=== PATIENT | female | born 1950 | race Caucasian/White ===

== ENCOUNTER 2021-01-04 10:05 | Outpatient (CLI) | payer MEDICARE, MEDICAID, SELFPAY ==
--- NOTE | 2021-01-04 10:15 | ECG_ITS ---
Measurements Intervals [place] Rate: 59 P: 57 [place]: 171 QRS: 27 QRSD: 98 T: 42 QT: 413 QTc: 411 Interpretive Statements SINUS BRADYCARDIA EARLY PRECORDIAL R/S TRANSITION BORDERLINE ECG Electronically Signed On 01-04-2021 11:15:54 CDT by Fredrick Krishnan D.O.
[2021-01-04 11:12] LABS: Anion Gap 9 mmol/L (8-16); Blood Urea Nitrogen 17 mg/dL (7-17); Calcium 9.5 mg/dL (8.4-10.2); Carbon Dioxide 29 mmol/L (22-30); Chloride 101 mmol/L (98-107); Estimated Glomerular Filt Rate > 60; Glucose 105 mg/dL (65-110); Potassium 4.1 mmol/L (3.4-5.0); Sodium 139 mmol/L (137-145)
== END 2021-01-04 10:06 | disposition home or self-care (01) ==
LOC: ANHSURGERY 10:16
PROVIDERS: Anesthesiology; PCP Family Medicine; Visit Provider Orthopaedic Surgery
DX: E11.9 Type 2 diabetes mellitus without complications (principal); Z01.818 Encounter for other preprocedural examination
CPT/HCPCS: 36415; 80048; 93005

== ENCOUNTER 2021-01-10 02:55 | Day surgery (SDC) | payer MEDICARE, MEDICAID, SELFPAY ==
[2020-12-28 14:35] VITALS: BMI 41.0
--- NOTE | 2021-01-05 12:54 | PM.IMHP ---
H&P: HPI History of Present Illness Date/Time: 01/05/21 12:54 the patient is a 70-year-old female who presents with right knee pain. The patient has a chronic ongoing history of pain localized to right knee particularly medially. She reports locking catching pain with ambulation twisting or turning squatting kneeling going up and down stairs causes significant pain as well. The patient has tried cortisone therapy and anti-inflammatories without significant relief. An MRI scan was performed, this shows small knee joint effusion and small popliteal fossa cyst there is also patellofemoral joint space narrowing most significantly laterally. Medial joint space narrowing is also noted with mild chondral path and changes in the medial femoral condyle. Stabilizing ligaments of the knee are intact. The medial meniscus shows mucoid degeneration of the posterior horn of the medial meniscus a probable complex tear exiting posteriorly and inferiorly. The lateral meniscus shows a small tear the posterior horn lateral meniscus as well. At this point the patient has failed conservative measures she has where the above findings she knows she has pre-existing osteoarthritis and may not get full relief of her knee pain from knee arthroscopy after she would like to proceed. She has discussed the MRI and details of surgery in detail with Dr. García. Chief Complaint: Right knee pain due to medial and lateral meniscal tears Review of Systems Review of Systems: All systems reviewed & are unremarkable except as noted in HPI and below PMFSH Past Medical History Medical History COPD (chronic obstructive pulmonary disease) HTN (hypertension) Family History Family History Mother Hypertension Family history of diabetes mellitus in first degree relative Father Patient's father is Acute myocardial infarction Family history of heart disease in male family member before age 55 Social History Social History Smoking status: Former smoker Second hand tobacco smoke exposure: No Smoking end date: 03/24/05 Additional smoking assessment comments: STATES 2 2/1PK/DAY/AGE 15 QUIT 2005 Alcohol intake: never Substance use: never Substance use type: does not use Spiritual care concerns: No Meds Home Medications and Allergies Home Medications Medication Instructions Recorded Confirmed Type amlodipine 5 mg PO HS 01/30/19 12/28/20 History atorvastatin 80 mg PO HS 01/30/19 12/28/20 History buspirone 10 mg PO BID 01/30/19 12/28/20 History citalopram 40 mg PO QAM 01/30/19 12/28/20 History gabapentin 100 mg PO TID 01/30/19 12/28/20 History hydrochlorothiazide 25 mg PO QAM 01/30/19 12/28/20 History lisinopril 40 mg PO QAM 01/30/19 12/28/20 History metformin 1,000 mg PO BID 01/30/19 12/28/20 History pantoprazole 40 mg PO HS 01/30/19 12/28/20 History sitagliptin [Januvia] 100 mg PO HS 01/30/19 12/28/20 History albuterol sulfate 2 puff INHALATION QID PRN 12/28/20 12/28/20 History aspirin 325 mg PO DAILY 12/28/20 12/28/20 History diphenhydramine HCl [Sleep Aid 25 mg PO HS 12/28/20 12/28/20 History (diphenhydramine)] sertraline 100 mg QAM 12/28/20 12/28/20 History Allergies Allergy/AdvReac Type Severity Reaction Status Date / Time No Known Allergies Allergy Verified 12/28/20 14:28 Exam Narrative: On exam the patient is noted be a well-developed well-nourished female no acute distress she is alert oriented x3. Normal mood and affect. Hearing and vision intact. Respiratory is good no distress. Pulse regular rate rhythm. Abdomen benign. Extremities showed the patient's right knee to be painful with manipulation range of motion. She has tenderness on the medial and somewhat lateral joint line with a positive Anita exam negative Cornelius knee joint is otherwise stable stre
--- NOTE | 2021-01-09 13:01 | WPDANESEPPF ---
Anes - Initial Pre Proc Eval Procedure: Operation Date: 01/10/21 07:30 Proposed Procedures p Right Knee Arthroscopy, Partial Medial and Lateral Meniscectomy, Proceed As Indicated - Cain García MD Date/Time: 01/09/21 13:01 Surgeon: Cain García MD Pre Op Diagnosis: medial meniscus tear right knee Patient Data Age: 70 Gender: F Height: 1.65 m Weight: 111.81 kg Allergies Allergy/AdvReac Type Severity Reaction Status Date / Time No Known Allergies Allergy Verified 01/10/21 06:21 Home Medications Medication Instructions Recorded Confirmed Type amlodipine 5 mg PO HS 01/30/19 01/10/21 History atorvastatin 80 mg PO HS 01/30/19 01/10/21 History buspirone 10 mg PO BID 01/30/19 01/10/21 History citalopram 40 mg PO QAM 01/30/19 01/10/21 History gabapentin 100 mg PO TID 01/30/19 01/10/21 History hydrochlorothiazide 25 mg PO QAM 01/30/19 01/10/21 History lisinopril 40 mg PO QAM 01/30/19 01/10/21 History metformin 1,000 mg PO BID 01/30/19 01/10/21 History pantoprazole 40 mg PO HS 01/30/19 01/10/21 History sitagliptin [Januvia] 100 mg PO HS 01/30/19 01/10/21 History albuterol sulfate 2 puff INHALATION QID PRN 12/28/20 01/10/21 History aspirin 325 mg PO DAILY 12/28/20 01/10/21 History diphenhydramine HCl [Sleep Aid 25 mg PO HS 12/28/20 01/10/21 History (diphenhydramine)] sertraline 100 mg QAM 12/28/20 01/10/21 History Patient hx anesthesia problems: none Family hx anesthesia problems: none Results Review: All pre-operative results and documents have been reviewed as part of the pre-operative evaluation. [facility] Past Medical History Medical History (Updated 01/09/21 @ 12:56 by Zach Randhawa MD) COPD (chronic obstructive pulmonary disease) Diabetes GERD (gastroesophageal reflux disease) HTN (hypertension) Hyperlipidemia LUX (obstructive sleep apnea) Family History Family History Mother Hypertension Family history of diabetes mellitus in first degree relative Father Patient's father is Acute myocardial infarction Family history of heart disease in male family member before age 55 Social History Social History Smoking status: Former smoker Second hand tobacco smoke exposure: No Smoking end date: 03/24/05 Additional smoking assessment comments: STATES 2 2/1PK/DAY/AGE 15 QUIT 2005 Alcohol intake: never Substance use: never Substance use type: does not use Living arrangements: with family Spiritual care concerns: No Anes - Eval Final PreProcedure Day of Procedure 01/09/21 13:01 Patient weight: morbidly obese Heart: regular rate and rhythm Lungs: clear to auscultation Airway: Mallampati scale class III Neurological: alert and oriented Last oral intake: >/= 8 hours ASA classification: III Emergent: no Anesthetic plan: proceed Anesthesia type and monitoring: general LMA and standard monitoring Results Review: All pre-operative results and documents have been reviewed as part of the pre-operative evaluation. Informed Consent: The patient's anesthetic plan and its attendant risks and benefits were discussed with the patient/family/POA. Questions were solicited and answers provided to the satisfaction of the patient/family/POA.
[2021-01-10] VITALS (9 sets, daily range): BP systolic 105–153; BP diastolic 48–68; PULSE 56–67; RESP 12–20; TEMP 36–36.2; O2SAT 90–99; BMI 42.3
[2021-01-10] MEDS: LACTATED RINGERS 1,000 ML 30 ML IV CONT ×2 (06:32→09:11)
[2021-01-10] MEDS: ACETAMINOPHEN 500 MG TABLET 1000 MG PO (06:33)
[2021-01-10] MEDS: KETOROLAC 15 MG/ML VIAL (*BKC) IV PUSH (06:33)
[2021-01-10 06:37] LABS: Glucose Point of Care 88 mg/dl (65-105)
--- NOTE | 2021-01-10 07:19 | WPDHPUPDATE1 ---
History and Physical Update Update Date/Time: 01/10/21 07:19 History and Physical has been reviewed, including an updated exam of the patient. There are NO changes in the patient's condition. Risks, benefits, and alternatives have been discussed and questions answered. Patient agrees to proceed with procedure.
[2021-01-10] MEDS: ceFAZolin 2 GM/D5W 50 ML 2 GM/50 ML BAG IVPB (07:24)
--- NOTE | 2021-01-10 07:28 | SUR.PREOP ---
0700; NOTIFIED DR DELVALLE, PT TOOK HER METFORMIN TODAY
[2021-01-10] MEDS: LIDO 1%/EPINEPHRINE 1:100,000 50 ML VIAL INFILTRATE (07:54)
--- NOTE | 2021-01-10 08:16 | W.PM.PROC2 ---
Procedure Note - Detailed Date of Procedure 01/10/21 Pre-op Diagnosis medial meniscus tear right knee Post-op Diagnosis same Procedure Performed [right] knee arthroscopy with partial meniscetomy Surgeon Cain García MD Anesthesia general Description of Procedure Patient brought to the operating room and anesthetic was administered. The knee was steriley prepped and drapped in the usual manner. Standard portals were used. Superior medial portal was used for the outflow cannula, inferior lateral portal was used for the scope, inferior medial portal was used for the instruments. Arthroscopy was performed, the patellar femoral joint degenerative changes. The medial compartment showed a complex tear. The lateral compartment showed fraying. The ACL was intact. Using baskets and rylee the meniscal tear was trimmed back to a stable base so the nothing further could be pulled into the joint. Any loose or delaminated fragments were gently trimmed to a stable base. At this point the instruments were withdrawn, sutures placed and patient left the operating room in satisfactory condition. Large plica debrided Estimated Blood Loss 20 Drains No Packing No Pathology none sent Complications No immediate complications Condition stable Disposition PACU
[2021-01-10 08:40] LABS: Glucose Point of Care 104 mg/dl (65-105)
[2021-01-10] MEDS: fentaNYL CITRATE INJ (*CRX) 100 MCG/2 ML VIAL 25 MCG IV PUSH ×4 (09:05→09:31)
[2021-01-10] MEDS: oxyCODONE HCL (*CRX) 5 MG TAB IR PO (10:12)
--- NOTE | 2021-01-10 11:23 | SUR.PHASEII ---
1050 ASSISTED PATIENT WITH DRESSING. AWAITING RIDE.
== END 2021-01-10 11:44 | disposition home or self-care (01) ==
PROVIDERS: PCP Family Medicine; Visit Provider Orthopaedic Surgery
PROC: (CPT 29870; principal; 2021-01-10 07:30)
DX: M23.331 Other meniscus derangements, other medial meniscus, right knee (principal); E11.9 Type 2 diabetes mellitus without complications; J44.9 Chronic obstructive pulmonary disease, unspecified; I10 Essential (primary) hypertension; E78.5 Hyperlipidemia, unspecified; G47.33 Obstructive sleep apnea (adult) (pediatric); K21.9 Gastro-esophageal reflux disease without esophagitis; Z87.891 Personal history of nicotine dependence; E66.01 Morbid (severe) obesity due to excess calories; Z68.41 Body mass index [BMI] 40.0-44.9, adult; Z79.84 Long term (current) use of oral hypoglycemic drugs; Z79.82 Long term (current) use of aspirin
CPT/HCPCS: 29881; 36415; 80048; 82948; 93005; A9270; J0690; J1100; J1885; J2250; J2405; J2704; J3010; J7120

== ENCOUNTER 2024-01-06 09:38 | Emergency (ER) | payer MEDICARE, MEDICAID, SELFPAY ==
[2024-01-06 09:42] VITALS: BP 145/53; PULSE 68; RESP 20; TEMP 36.7; O2SAT 98
[2024-01-06 10:11] VITALS: BP 145/53; PULSE 68; RESP 20; TEMP 36.7; O2SAT 98
--- NOTE | 2024-01-06 10:31 | ED.EAR ---
HPI - Ear Problem General Chief complaint: Ear Stated complaint: bug in left ear Time Seen by Provider: 01/06/24 10:31 Source: patient Mode of arrival: ambulatory Limitations: no limitations History of Present Illness HPI Narrative: 73 y/o female presented for c/o 'bug in the left ear.' Says a canela crawled into the ear at 0230. She rinsed the ear with hydrogen peroxide at that time. Since then she continues to feel it crawling and reports pain and bleeding. Pain is mild, worse when it moves. MD Complaint: ear pain Related Data Home Medications Medication Instructions Recorded Confirmed amlodipine 5 mg tablet 5 mg PO HS 01/30/19 01/06/24 atorvastatin 80 mg tablet 80 mg PO HS 01/30/19 01/06/24 buspirone 10 mg tablet 10 mg PO BID 01/30/19 01/06/24 hydrochlorothiazide 25 mg tablet 25 mg PO QAM 01/30/19 01/06/24 lisinopril 40 mg tablet 40 mg PO QAM 01/30/19 01/06/24 metformin 500 mg tablet 500 mg PO BID 01/30/19 01/06/24 pantoprazole 40 mg tablet,delayed 40 mg PO HS 01/30/19 01/06/24 release sitagliptin phosphate 100 mg 100 mg PO HS 01/30/19 01/06/24 tablet (Januvia) albuterol sulfate 90 mcg/actuation 2 puff inhalation QID PRN Wheezing 12/28/20 01/06/24 aerosol inhaler aspirin 325 mg tablet 325 mg PO DAILY 12/28/20 01/06/24 sertraline 100 mg tablet 100 mg QAM 12/28/20 01/06/24 losartan 100 mg tablet 100 mg PO DAILY 01/06/24 01/06/24 tramadol 50 mg tablet 50 mg PO Q6H PRN Pain 01/06/24 01/06/24 Allergies Allergy/AdvReac Type Severity Reaction Status Date / Time No Known Allergies Allergy Verified 01/06/24 09:58 Review of Systems Review of Systems: CONSTITUTIONAL: Denies malaise, chills, or fever. EYES: Denies visual changes, redness, or discharge. ENT: Denies rhinorrhea, congestion, sinus pain, and sore throat. Reports ear pain and FB. CARDIOVASCULAR: Denies chest pain, palpitations, or edema. RESPIRATORY: Denies cough or dyspnea. SKIN: Denies rash or itching. NEUROLOGIC: Denies headache. All systems reviewed & are unremarkable except as noted in HPI and below PMFSH Past Medical History Medical History COPD (chronic obstructive pulmonary disease) Diabetes GERD (gastroesophageal reflux disease) HTN (hypertension) Hyperlipidemia LUX (obstructive sleep apnea) Family History Family History Mother Hypertension Family history of diabetes mellitus in first degree relative Father Patient's father is Acute myocardial infarction Family history of heart disease in male family member before age 55 Social History Social History Smoking status: Former smoker Second hand tobacco smoke exposure: No Smoking end date: 03/24/05 Additional smoking assessment comments: STATES 2 2/1PK/DAY/AGE 15 QUIT 2005 Alcohol intake: never Substance use: never Substance use type: does not use Living arrangements: with family Spiritual care concerns: No Comments At time of signature, agree with nursing past medical, surgical, social and family history. There is no relevant family history pertinent to the presenting complaint Exam Narrative: GENERAL: Well-appearing EYES: conjunctivae clear ENT: Nares clear. Mucous membranes moist. Left TM unable to visualize, red blood noted to external canal with visible FB/insect in canal; no tragal tenderness. NECK: Supple. No lymphadenopathy CHEST: Clear to auscultation, breath sounds equal. HEART: Regular rate and rhythm. No murmur heard. SKIN: Warm, dry NEURO: Alert and oriented x3. Course Course Emergency Course: Patient is aware of diagnosis, understands and agrees to treatment plan. Anticipatory guidance given. Patient agrees to follow-up as directed and is aware of reasons to seek care at the emergency department. Portions of this record may have been created with voice rec
[2024-01-06] MEDS: LIDOCAINE HCL 1% LOCAL INJ 2 ML AMPUL INFILTRATE (10:43)
== END 2024-01-06 11:45 | disposition home or self-care (01) ==
PROVIDERS: Emergency Provider Nurse Practitioner Family; PCP Physician Assistant
DX: T16.2XXA Foreign body in left ear, initial encounter (principal); W44.F4XA Insect entering into or through a natural orifice, initial encounter; Z87.891 Personal history of nicotine dependence; J44.9 Chronic obstructive pulmonary disease, unspecified; E11.9 Type 2 diabetes mellitus without complications; I10 Essential (primary) hypertension; K21.9 Gastro-esophageal reflux disease without esophagitis; E78.5 Hyperlipidemia, unspecified
CPT/HCPCS: 69200; 99213; G0463; J2003

== ENCOUNTER 2024-06-11 14:45 | Emergency (ER) | payer MEDICARE, MEDICAID, SELFPAY ==
[2024-06-11 14:56] VITALS: BP 134/99; PULSE 91; RESP 18; TEMP 36.6; O2SAT 97
--- OUTSIDE RECORDS SUMMARY | 2024-06-11 14:58 | XMS_ITS | Clinical Summary ---
Author Organization [facility] Address [address] [place] [address] Phone Care Team Providers Care Health Actuary Name Role Phone Perry García Primary Care Provider [phone] Allergies No known active allergies Medications amLODIPine (NORVASC) 5 MG Tablet Take 5 mg by mouth daily. Active aspirin 325 MG Tablet Take 325 mg by mouth daily. Active atorvastatin (LIPITOR) 80 MG Tablet Take 80 mg by mouth daily. Active busPIRone (BUSPAR) 10 MG Tablet Take 10 mg by mouth every 8 hours as needed. Active citalopram (CELEXA) 40 MG Tablet Take 40 mg by mouth daily. Active gabapentin (NEURONTIN) 100 MG Capsule Take 100 mg by mouth 3 times daily. Active hydroCHLOROthia zide 25 MG Tablet Take 25 mg by mouth daily. Active ibuprofen (MOTRIN) 200 MG Tablet Take 400 mg by mouth every 6 hours as needed. Active SITagliptin (JANUVIA) 100 MG Tablet Take 100 mg by mouth daily. Active lisinopril (PRINIVIL, ZESTRIL) 40 MG Tablet Take 40 mg by mouth daily. Active metFORMIN (GLUCOPHAGE) 500 MG Tablet Take 1,000 mg by mouth 2 times daily (with meals). Active albuterol (PROAIR HFA) 108 (90 Base) MCG/ACT Aerosol Solution take 2 Puffs by inhalation every 4 hours as needed. Active HYDROcodone-hugh taminophen (NORCO) 5-325 MG TabletIndicatio ns:Contusion of right upper extremity, initial encounter Take 1-2 Tablets by mouth every 4 hours as needed for Moderate or more severe pain. 20 Tablet 06/10/202 4 Active Active Problems Problem Noted Date Diagnosed Date COPD (chronic obstructive pulmonary disease) Social History Tobacco Use Types Packs/Day Years Used Date Smoking Tobacco: Former Cigarettes Q uit: 2009 Smokeless Tobacco: Never Alcohol Use Standard Drinks/Week Comments Never 0 (1 standard drink = 0.6 oz pur e alcohol) AUDIT-C Answer Date Recorded Frequency of Alcohol Consumption Never 03/20/2019 Average Number of Drinks Not on file 019 Frequency of Binge Drinking Not on file 02/22 Comments No Sex and Gender Information Value Date Recorded Sex Assigned at Not on file Legal Sex Female 12:00 AM CDT Gender Identity Not on file Sexual Orientation Not on file Last Filed Vital Signs Vital Sign Reading Time Taken Comments Blood Pressure 161/62 09/01/2023 12:04 AM CDT Pulse 74 09/01/2023 12:04 AM CDT Temperature 36.6 C (97.9 F) 09/01/2023 12:04 AM CDT Respiratory Rate 18 09/01/2023 12:04 AM CDT Oxygen Saturation 98% 09/01/2023 12:04 AM CDT Inhaled Oxygen Concentration - - Weight 104.3 kg (230 lb) 09/01/2023 12:04 AM CDT Height 165.1 cm (5' 5 ) 09/01/2023 12:04 AM CDT Body Mass Index 38.27 09/01/2023 12:04 AM CDT Plan of Treatment Health Maintenance Due Date Last Done Comments DEXA Bone Density 1950 Hepatitis C Virus (HCV) Screening 1950 Mammogram 1950 Colonoscopy 10/27/1995 Colorectal Cancer Screening 10/27/1995 Cologuard 2000 Immunochemical Fecal Occult Blood 2000 Respiratory Syncytial Virus (RSV) Immunization (Adult) (1 - Risk 60-74 years 1-dose series) 2010 Zoster Immunization (2 of 2) 03/26/2019 01/29/2019 Influenza Immunization (#1) 2023 11/0 11/2022, 02/21/2022, 12/17/2018, Additional history exists SARS-COV-2 Immunization ( - season) 2023 12/15/2020, 11/24/2020 DTaP/Tdap/Td Immunization Discontinued 08/11/2015 TdaP Immunization Completed 08/11/2015 Pneumococcal Immunization (50+ years) Completed 01/29/2019, 01/26/2018, 01/24/2018 Pneumococcal Immunization Combined Discontinued 01/29/2019, 01/26/2018, 01/24/2018 Hepatitis B Immunization Aged Out No longer eligible based on patient's age to complete this topic Meningococcal Immunization (ACWY) Aged Out No longer eligible based on patient's age to complete this topic Rotavirus Immunization Aged Out No lo nger eligible based on patient's age to complete this topic Insurance MEDICAID [place] MEDICARE C [employer] Care Teams Health Actuary Relationship Specialty Start Date End Date Perry García PA [address] [place] [id number] PCP - General Physician Electric Detector Operator 09/01/23
--- OUTSIDE RECORDS SUMMARY | 2024-06-11 14:58 | XMS_ITS | CONTINUITY OF CARE DOCUMENT ---
Author Name tashi akins Address Unknown Organization [facility] Address [address] [employer] [address] [employer] [facility] [address] [place] [address] Phone [phone] Care Team Providers Care Senior Property Manager Name Role Phone Pablo ROLDAN, Gregorio Unavailable [phone] GAY RODRIGUEZ MD Unavailable GAY RODRIGUEZ MD Unavailable PROBLEMS Condition Status Date Provider Notes HTN essential active Gregorio Shah MD HYPERLIPIDEMIA active Ange Luke Orthostatic hypotension active Gregorio Shah MD ARTHRITIS active Gregorio Shah MD DM - type 2 active 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 CHEST PAIN-12/29 CATH LAD mu scle bridge ,echo /stress 10/04 no ischemia active Gregorio Shah MD SLEEP APNEA ON CPAP active Gregorio Shah MD C O P D ON PRN active Gregorio Shah MD CHEST PAIN-12/30 NUC NEG 6/0 6 NUC EF 47 6/4 NUC NEG completed - Gregorio Shah MD ENCOUNTERS Date Type Provider Location Encounter Diag nosis - In-person encounter Office Visit Gregorio Shah MD [facility] Orthostatic hypotension - In-person encounter Office Visit Gregorio Shah MD [facility] - In-person encounter Office Visit Gregorio Shah MD [facility] ARTHRITIS - In-person encounter Office Visit Gregorio Shah MD [facility] - In-person encounter Office Visit Gregorio Shah MD [facility] DM - type 2 - In-person encounter Office Visit Gregorio Shah MD [facility] - In-person encounter Office Visit Gregorio Shah MD [facility] CHEST PAIN-12/29 CATH LAD muscle bridge ,echo /stress 10/04 no ischemia - In-person encounter Office Visit Gregorio Shah MD [facility] CHEST PAIN-12/29 CATH LAD muscle bridge ,echo /stress 10/04 no ischemia - In-person encounter Office Visit Gregorio Shah MD [facility] - In-person encounter Office Visit Gregorio Shah MD [facility] - In-person encounter Office Visit Gregorio Shah MD [facility] - In-person encounter Office Visit Gregorio Shah MD [facility] - In-person encounter Office Visit Gregorio Shah MD [facility] - In-person encounter Office Visit Gregorio Shah MD [facility] - In-person encounter Office Visit Gregorio Shah MD [facility] CHEST PAIN-12/30 NUC NEG 08/27 NUC EF 47 6/4 NUC NEGC O P D ON PRNSLEEP APNEA ON CPAP - In-person encounter Office Visit Gregorio Shah MD [facility] - In-person encounter Office Visit Gregorio Shah MD [facility] VITAL SIGNS Date Observation Value Provider Body Mass Index (Ratio) 41.18 kg/m2 Jame Shah MD blood pressure, diastolic 70 mm[Hg] Da ankit Tyler blood pressure, systolic 138 mm[Hg] Dac ia Tyler oxygen saturation, oximetry 97 % Daja Tyler respiratory rate E&M 16 /min Daja V oss pulse rate 67 /min Daja Tyler weight E&M 249 [lb_av] Daja Tyler height E&M 65.2 [in_i] Daja Tyler Body Mass Index (Ratio) 40.68 kg/m2 Jame Shah MD blood pressure, cuff size regular Ke rri Federico blood pressure, diastolic 72 mm[Hg] Ke rri Federico blood pressure, systolic 158 mm[Hg] Primo Caballero oxygen saturation, oximetry 97 % Nevin Caballero respiratory rate E&M 18 /min Nevin yu pulse rate 73 /min Nevin Botello er weight E&M 246 [lb_av] Nevin Botello er height E&M 65.2 [in_i] Nevin Botello er Body Mass Index (Ratio) 41.77 kg/m2 Jame Shah MD blood pressure, diastolic 68 mm[Hg] Lukasz Fuentes blood pressure, systolic 126 mm[Hg] Mary Fuentes oxygen saturation, oximetry 98 % Jeimy Fuentes respiratory rate E&M 20 /min Arely Fuentes pulse rate 72 /min Jeimy lovett weight E&M 252.6 [lb_av] Jeimy cardona height E&M 65.2 [in_i] Jeimy lovett blood pressure, diastolic 69 mm[Hg] Me buckley Rosa Elena blood pressure, systolic 126 mm[Hg] Tatyana jordan Rosa Elena pulse rate 78 /min Loly Rosa Elena oxygen saturation, oximetry 97 % Loly Cuba respiratory rate E&M 15 /min Loly Cuba Body Mass Index (Ratio) 42.67 kg/m2 Chyna kenzie [place] weight E&M 258 [lb_av] Loly [place] blood pressure, diastolic 67 mm[Hg] Lukasz Fuentes blood pressure, systolic 126 mm[Hg] Mary Fuentes pulse rate 85 /min Jeimy Macdonald sangeethaon oxygen saturation, oximetry 97 % Jeimy Fuentes respiratory rate E&M 18 /min Arely Fuentes Body Mass Index (Ratio) 43.06 kg/m2 Annette Fuentes weight E&M 260.4 [lb_av] Jeimy cardona Body Mass Index (Ratio) 42.67 kg/m2 Anea timo Trevon blood pressure, diastolic 81 mm[Hg] An eatris Trevon blood pressure, systolic 141 mm[Hg] Ane atris Brown pulse rate 76 /min Aneatris Brown oxygen saturation, oximetry 97 % Aneatris Brown respiratory rate E&M 17 /min Aneatri s Trevon weight E&M 258 [lb_av] Aneatris Brown Body Mass Index (Ratio) 42.50 kg/m2 Ruvalcaba i Federico blood pressure, diastolic 68 mm[Hg] Ke rri Federico blood pressure, systolic 124 mm[Hg] Ker ri Federico pulse rate 83 /min Nevin Ayan gonzaleser oxygen saturation, oximetry 97 % Nevin Federico respiratory rate E&M 16 /min Nevin Aden yu weight E&M 257 [lb_av] Nevin Justynanehenoke lder Body Mass Index (Ratio) 42.17 kg/m2 [facility], diastolic 89 mm[Hg] Me ina [place] blood pressure, systolic 140 mm[Hg] Tatyana [place] pulse rate 72 /min Loly Cuba oxygen saturation, oximetry 98 % Loly [place] respiratory rate E&M 16 /min Loly [place] weight E&M 255 [lb_av] Loly [place] Body Mass Index (Ratio) 42.16 kg/m2 Ruvalcaba i Federico blood pressure, diastolic 80 mm[Hg] Kendall rri Federico blood pressure, systolic 158 mm[Hg] Primo Caballero pulse rate 87 /min Nevin booth oxygen saturation, oximetry 98 % Nevin Caballero respiratory rate E&M 18 /min Nevin yu weight E&M 254 [lb_av] Nevin Botello lder blood pressure, diastolic 90 mm[Hg] Fabrice Miller RN blood pressure, systolic 156 mm[Hg] Adonay Miller RN pulse rate 82 /min Adonay Miller RN oxygen saturation, oximetry 95 % Adonay Miller RN respiratory rate E&M 18 /min Adonay david RN Body Mass Index (Ratio) 42.16 kg/m2 Adonay Miller RN weight E&M 254 [lb_av] Adonay Miller RN height E&M 65.2 [in_i] Adonay Miller RN blood pressure, diastolic 76 mm[Hg] Garima horowitz [place] blood pressure, systolic 158 mm[Hg] Ruben mcneal [place] pulse rate 84 /min Diego [place] oxygen saturation, oximetry 99 % Diego [place] respiratory rate E&M 16 /min Diego [place] weight E&M 253 [lb_av] Diego [place] blood pressure, diastolic 78 mm[Hg] Garima seph [place] blood pressure, systolic 166 mm[Hg] Ruben eph [place] pulse rate 74 /min Diego [place] oxygen saturation, oximetry 98 % Diego [place] respiratory rate E&M 16 /min Diego [place] weight E&M 248 [lb_av] Diego [place] blood pressure, diastolic 72 mm[Hg] Latham Jose blood pressure, systolic 104 mm[Hg] Radu jacobo Jose pulse rate 101 /min Denyean Jose oxygen saturation, oximetry 96 % Denyean Jose respiratory rate E&M 16 /min Denyean Jose blood pressure, diastolic 76 mm[Hg] He ather Blunt blood pressure, systolic 131 mm[Hg] Hea ther Blunt pulse rate 75 /min Emily Blunt oxygen saturation, oximetry 96 % Emily Blunt respiratory rate E&M 20 /min Emily Blunt weight E&M 248 [lb_av] Emily Blunt blood pressure, diastolic, left arm 100 m m[Hg] [facility], [facility], left arm 160 mm [Hg] [facility], diastolic, right arm 94 m m[Hg] [facility] blood [facility], systolic, right arm 148 m m[Hg] [facility], diastolic 94 mm[Hg] Garima seph [place] blood pressure, systolic 148 mm[Hg] Ruben eph [place] pulse rate 88 /min [facility] oxygen [facility], oximetry 97 % [facility] respiratory rate E&M 16 /min [facility] weight E&M 227 [lb_av] [facility], diastolic 87 mm[Hg] Danie Neff blood pressure, systolic 111 mm[Hg] Jenkins pulse rate 62 /min Siobhan Neff oxygen saturation, oximetry 95 % Siobhan Neff respiratory rate E&M 16 /min Siobhan Parson hussein weight E&M 236 [lb_av] Siobhan Neff ALLERGIES No Known Drug Allergies RESULTS Date Observation Value Provider Reference Range Interpretation Location 2 platelet count 263 10*3/mm3 [facility] 2 hematocrit, blood 39.6 % [facility] 2 international normalized ratio (INR) 0.9 [facility] 2 blood glucose, random 162 mg/dL [facility] 2 creatinine, serum 0.70 mg/dL [facility] 2 urea nitrogen, blood 17 mg/dL [facility] 2 potassium, serum 4.4 mmol/L [facility] 2 sodium, serum 139 mmol/L [facility] HISTORY OF MEDICATION USE Medication Status Instructions Dates Provider Indications Com ments NITROSTAT 0.4 MG SUBLINGUAL TABLET SUBLINGUAL active apply one tab under tongue every 5 minutes for 3 total doses as needed for chest pain. If no relief after 3rd dose, go to ER 08/19 Gregorio Shah MD AMLODIPINE BESYLATE 5 MG ORAL TABLET active ONE TAB at night 03/29 Gregorio Shah MD MULTIVITAMINS ORAL CAPSULE active ONE TAB. DAILY 03/29 Nevin Caballero GABAPENTIN 100 MG ORAL CAPSULE active 3 times daily Jeimy Fuentes JANUVIA 100 MG ORAL TABLET active once daily 11/05 Loly Cuba PANTOPRAZOLE SODIUM TABLET DELAYED RELEASE completed take one pill a day 10/19 - 11/05 Loly [place] METFORMIN HCL 1000 MG ORAL TABLET active twice daily 04/06 Jeimy Fuentes CELEXA 20 MG ORAL TABLET completed take one pill a day 04/06 - 11/05 Loly [place] HYDROCHLOROTHIAZIDE 25 MG ORAL TABLET active ONE TAB PO DAILY 05/05 Gregorio Shah MD DULERA 200-5 MCG/ACT INHALATION AEROSOL active 2 puffs once daily Adonay Miller RN HYDROCODONE-ACETAMINO PHEN 10-325 MG ORAL TABLET completed one tab daily as needed - 12/06 Nevin Caballero LISINOPRIL 40 MG ORAL TABLET active ONE TAB. DAILY Adonay Miller RN LIPITOR 40 MG ORAL TABLET active ONE TAB. DAILY 06/02 Gregorio Shah MD FISH OIL CAPS 2000MG active daily 06/02 Garima Macdonald LISINOPRIL-HYDROCHLOR OTHIAZIDE 20-12.5 MG ORAL TABLET completed one tab twice daily - 05/05 Adonay Miller RN DICLOFENAC SODIUM 75 MG ORAL TABLET DELAYED RELEASE completed 1 tablet by mouth twice daily - 11/05 Loly Rosa Elena LORTAB 10-500 MG ORAL TABLET completed 1 tablet by mouth daily as needed - 12/06 Nevin Caballero OMEPRAZOLE 40 MG ORAL CAPSULE DELAYED RELEASE completed 1 capsule by mouth daily - 12/06 Nevin Caballero SIMPLY SLEEP TABLET active 2 tablets by mouth at bedtime Diego Prado CYMBALTA 30 MG ORAL CAPSULE DELAYED RELEASE PARTICLES completed 1 capsule by mouth with 60mg = 90mg daily - 05/05 Adonay Miller RN HYDROCHLOROTHIAZIDE 12.5 MG ORAL CAPSULE completed ONE TAB. DAILY 04/29 - 04/30 Gregorio Shah MD LASIX 20 MG ORAL TABLET completed one tab daily for 1 week - 12/06 Diego Prado PROVENTIL HFA AEROSOL SOLUTION completed 2 puffs by mouth daily - 05/05 Adonay Miller RN ADVAIR DISKUS 250-50 MCG/DOSE INHALATION AEROSOL POWDER BREATH ACTIVATED completed ONE PUFF TWICE DAILY 04/07 - 05/05 Adonay Miller RN VYTORIN 10-10 MG ORAL TABLET completed 1 tablet by mouth daily - 05/05 Adonay Miller RN PHENTERMINE HCL 30 MG ORAL CAPSULE completed ONE CAP DAILY 04/07 - 12/06 Tasha Jose PRILOSEC OTC TABLET DELAYED RELEASE completed ONE TAB DAILY 04/07 - 12/06 Tasha Jose HEALTHY COLON CAPS completed ONE CAP DAILY 04/07 - 12/06 Nevin Caballero MELOXICAM 15 MG ORAL TABLET completed 1 tablet by mouth daily - 05/05 Adonay Miller RN PROZAC 40 MG ORAL CAPSULE completed as directed - 04/07 Adonay Miller RN MIRAPEX 0.5 MG ORAL TABLET completed once daily - 12/06 Diego Quintanaacoedgardo AVALIDE 300-25 MG TABS completed ONE TAB DAILY 04/07 - 08/28 Gregorio Shah MD XANAX 0.25 MG ORAL TABLET completed ONE TAB. THREE TIMES DAILY PRN - 12/06 Diego Prado MEDROL TABLET THERAPY PACK completed - 12/06 Diego Prado HYDROCHLOROTHIAZIDE 25 MG ORAL TABLET completed 1 tablet by mouth daily - 04/07 Adonay Miller RN XOPENEX HFA 45 MCG/ACT INHALATION AEROSOL completed QD - 04/07 Adonay Miller RN ASPIRIN 325 MG ORAL TABLET active Take Once Daily Ange Ti PREVACID CPDR completed 1 tablet by mouth daily - 04/07 Adonay Miller RN CRESTOR 10 MG ORAL TABLET completed Take Once Daily - 04/07 Adonay Miller RN EXFORGE 10-320 MG ORAL TABLET completed QD - 12/06 Diego Quintanaacoedgardo ADVAIR DISKUS 250-50 MCG/DOSE INHALATION AEROSOL POWDER BREATH ACTIVATED completed QD - 12/06 Diego Quintanaacop SPIRIVA HANDIHALER CAPSULE completed 8mcg QD - 12/06 Diego Prado MICARDIS HCT 80-25 MG ORAL TABLET completed QD - 12/06 Siobhan Neff SINGULAIR 10 MG ORAL TABLET completed 1 tablet by mouth daily as needed - 12/06 Diego Quintanaacoedgardo CYMBALTA 60 MG ORAL CAPSULE DELAYED RELEASE PARTICLES completed 1 capsule by mouth - 12/06 Nevin Caballero SOCIAL HISTORY Date Observation Value Provider social history reviewed E&M revi ewed - no changes required Esteban Hall seatbelt usage 100 % Symone harris exercise type walking Symone Li er physical exercise, f requency, days per week 2 /wk Symone Alberts alcohol use, average drinks per day none Symone Alberts alcohol use no Symone Hahn r caffeine use, averag e drinks per day no Symone Alberts drug use none Symone Hahn r passive cigarette sm lio exposure no Symone Alberts smoking, year quit 2004 Symone Pollack exander number of years as a smoker 10 years or m ore Symone Alberts smoking history, tot al pack/year 40 Symone Alberts smoking history, tot al pack/day 2.5 Symone Alberts smoking status Former smoker Symone melo cigarette use yes Symone [facility] seatbelt usage 100 % [facility] exercise type walking [facility] physical exercise, f requency, days per week 2 /wk Symone Alberts alcohol use, average drinks per day none Symone Alberts alcohol use no Symone wharton caffeine use, averag e drinks per day no Symone Alberts drug use none Symone Hahn r passive cigarette sm lio exposure no Symone Alberts smoking, year quit 2004 Symone Pollack mayra number of years as a smoker 10 years or m ore Symone Alberts smoking history, tot al pack/year 40 Symone Alberts smoking history, tot al pack/day 2.5 Symone Alberts smoking status Former smoker Symone melo cigarette use yes [facility] seatbelt usage 100 % [facility] steven exercise type walking [facility] physical exercise, f requency, days per week 2 /wk Symone Aristeo alcohol use, average drinks per day none Symone Aristeo alcohol use no Symone Hahn r caffeine use, averag e drinks per day no Symone Alberts drug use none Symone Hahn r passive cigarette sm lio exposure no Symone Alberts smoking, year quit 2004 Symone Pollack ra[place] number of years as a smoker 10 years or m ore Symone Alberts smoking history, tot al pack/year 40 Symone Alberts smoking history, tot al pack/day 2.5 Symone Alberts smoking status Former smoker Symone melo cigarette use yes Symone garcia social history reviewed E&M revi ewed - no changes required Gregorio Shah MD physical exercise, f requency, days per week no Daja Tyler alcohol use, average drinks per day none Daja Tyler alcohol use no Daja Tyler caffeine use, averag e drinks per day no Daja Tyler drug use none Daja Tyler passive cigarette sm lio exposure no Daja Tyler smoking, year quit 2003 Daja Fauzia s number of years as a smoker 10 years or m ore [facility] smoking history, tot al pack/year 40 Daja Tyler smoking history, tot al pack/day 2.5 Daja Tyler cigarette use yes Daja Tyler smoking status Former smoker Daja Tyler number of grandchildren Gregorio Shah MD T jeffery Shah MD social history reviewed E&M revi ewed - no changes required Gregorio Shah MD physical exercise, f requency, days per week no Nevin Caballero alcohol use, average drinks per day none Nevin Caballero alcohol use no Nevin gonzaleser caffeine use, averag e drinks per day no Nevin Caballero drug use none Nevin Botello lder passive cigarette sm lio exposure no Nevin Caballero smoking, year quit 2003 Nevin Singh aide number of years as a smoker 10 years or m ore Nevin Caballero smoking history, tot al pack/year 40 Nevin Caballero smoking history, tot al pack/day 2.5 Nevin Sorensencalvinradha cigarette use yes Nevin madison smoking status Former smoker Nevin srivastava social history reviewed E&M revi ewed - no changes required Gregorio Shah MD physical exercise, f requency, days per week no Jeimy Fuentes alcohol use, average drinks per day none Jeimy Fuentes alcohol use no Jeimy Torres rachell caffeine use, averag e drinks per day no Jeimy Fuentes drug use none Jeimy Macdonald sangeethaon passive cigarette sm lio exposure no Jeimy Fuentes smoking, year quit 2003 Jeimy Fuentes number of years as a smoker 10 years or m ore Jeimy Fuentes smoking history, tot al pack/year 40 Jeimy Fuentes smoking history, tot al pack/day 2.5 Jeimy Alfredo cigarette use yes Jeimy Rivera dulce smoking status Former smoker Jeimy Chase bob number of grandchildren Gregorio Mejia NP social history reviewed E&M revi ewed - no changes required Loly Cuba physical exercise, f requency, days per week no Loly Cuba alcohol use, average drinks per day none Loly Cuba alcohol use no Loly Cuba caffeine use, averag e drinks per day no Loly Cuba drug use none Loly [place] passive cigarette sm lio exposure no Loly Cuba smoking, year quit 2004 Loly Wynn cCann number of years as a smoker 10 years or m ore Loly Cuba smoking history, tot al pack/year 40 Loly Cuba smoking history, tot al pack/day 2.5 Loly Cuba cigarette use yes Loly Cuba smoking status Former smoker Loly villarreal social history reviewed E&M revi ewed - no changes required Gregorio Shah MD physical exercise, f requency, days per week no Jeimy Fuentes alcohol use, average drinks per day none Jeimy Fuentes alcohol use no Jeimy Macdonald sangeethajade caffeine use, averag e drinks per day no Jeimy Fuentes drug use none Jeimy Macdonald sangeethajade passive cigarette sm lio exposure no Jeimy Fuentes smoking, year quit 2003 Jeimy Fuentes number of years as a smoker 10 years or m ore Jeimy Fuentes smoking history, tot al pack/year 40 Jeimy Fuentes smoking history, tot al pack/day 2.5 Jeimy Fuentes cigarette use yes Jeimy cardona smoking status Former smoker Jeimy Chase bob social history reviewed E&M revi ewed - no changes required Millie Lester smoking/tobacco cess ation, patient education and counseling yes Gregorio Shah MD social history reviewed E&M revi ewed - no changes required Gregorio Shah MD alcohol use no Nevin booth smoking history, tot al pack/year 40 Nevin Caballero smoking history, tot al pack/day 2.5 Nevin Caballero cigarette use yes Nevin madison smoking status Former smoker Nevin peaner physical exercise, f requency, days per week no Loly Cuba alcohol use, average drinks per day none Loly Cuba caffeine use, averag e drinks per day no Loly [place] drug use none Loly [place] passive cigarette sm lio exposure no Loly [place] smoking status Former smoker Loly Agustin cherelle drug use none Gregorio Shah MD social history reviewed E&M reviewed Gregorio Shah MD drug use no Adonay Miller RN passive cigarette sm lio exposure no Adonay Miller RN smoking history, tot al pack/year 120 Adonay Miller RN smoking, year quit 2003 Adonay fan RN social history reviewed E&M reviewed Adonay Miller RN smoking status former smoker Adonay Guerin social history reviewed E&M reviewed Adonay Miller RN social history reviewed E&M reviewed Adonay Miller RN social history reviewed E&M reviewed Gregorio Shah MD social history reviewed E&M reviewed Adonay Miller RN social history reviewed E&M reviewed Gregorio Shah MD social history E&M Marital Statu s: L chandan with family/friends E thnicity: Gregorio Shah MD drug use none Gregorio Shah MD social history reviewed E&M reviewed Gregorio Shah MD physical exercise, f requency, days per week no [employer] caffeine use, averag e drinks per day no [employer] alcohol use, average drinks per day none [employer] number of years as a smoker 10 years or m ore [employer] smoking status Quit [facility] MENTAL STATUS Date Observation Value Provider assessment of judgme nt and insight E&M Alert and oriented to time, place and person. Mood and affect are normal. Gregorio Shah MD assessment of judgme nt and insight E&M Alert and oriented to time, place and person. Mood and affect are normal. Adonay Miller RN assessment of judgme nt and insight E&M Alert and oriented to time, place and person. Mood and affect are normal. Adonay Miller RN assessment of judgme nt and insight E&M Alert and oriented to time, place and person. Mood and affect are normal. Adonay Miller RN assessment of judgme nt and insight E&M Alert and oriented to time, place and person. Mood and affect are normal. Gregorio Shah MD assessment of judgme nt and insight E&M Alert and oriented to time, place and person. Mood and affect are normal. Adonay Miller RN assessment of judgme nt and insight E&M Alert and oriented to time, place and person. Mood and affect are normal. Gregorio Shah MD assessment of judgme nt and insight E&M Alert and oriented to time, place and person. Mood and affect are normal. Gregorio Shah MD FAMILY HISTORY Family Member Condition First Degree Blood Relative No Known Fam lisbet History INSURANCE PROVIDERS Payer name Policy type / Coverage type [place] [employer] ID [employer] O HMO [id number] ADVANCE DIRECTIVES Name Date DISCUSSED - NO DECISION MADE TREATMENT PLAN Date Name Performer Cardiology follow up Gregorio ventura MD Cardiology follow up Gregorio ventura MD Cardiology follow up Gregorio ventura MD Cardiology follow up Gregorio ventura MD Cardiology follow up Gregorio ventura MD Cardiology Follow up :Chief complaint today is pain associated with arthritis. Recommend Tylenol for pain control until she can find effective alternative Gregorio Shah MD Cardiology Follow up :Elevated today. Will start amlodipine 5mg daily. BP today: 158/72 P rior BP: 126/68 (05/28/2016) Labs Reviewed: C reat: 0.70 (09/12/2013) Gregorio Shah MD Cardiology Follow up : H er updated medication list for this problem includes: Lipitor 40 Mg Tabs (Atorvastatin calcium) ..... One tab. daily Gregorio Shah MD Cardiology Follow up :CPAP compl iant Gregorio Shah MD Cardiology Follow up Gregorio ventura MD Cardiology Gregorio Shah MD Cardiology Gregorio Shah MD Cardiology Gregorio Shah MD Cardiology Gregorio Shah MD Cardiology Gregorio Shah MD Cardiology Gregorio Shah MD Cardiology Gregorio Shah MD Cardiology Gregorio Shah MD follow up: H er updated medication list for this problem includes: Aspirin 325 Mg Tabs (Aspirin) ..... Take once daily Lisinopril 40 Mg Tabs (Lisinopril) ..... One tab. daily Hydrochlorothiazide 25 Mg Tabs (Hydrochlorothiazide) ..... One tab po daily Gregorio Shah MD Follow up : H er updated medication list for this problem includes: Aspirin 325 Mg Tabs (Aspirin) ..... Take once daily Lisinopril 40 Mg Tabs (Lisinopril) ..... One tab. daily Gregorio Shah MD Follow up : H er updated medication list for this problem includes: Aspirin 325 Mg Tabs (Aspirin) ..... Take once daily Lisinopril 40 Mg Tabs (Lisinopril) ..... One tab. daily Hydrochlorothiazide 25 Mg Tabs (Hydrochlorothiazide) ..... One tab po daily BP today: 124/68 P rior BP: 140/89 (09/21/2013) Labs Reviewed: C reat: 0.70 (09/12/2013) Gregorio Shah MD Follow up: H er updated medication list for this problem includes: Aspirin 325 Mg Tabs (Aspirin) ..... Take once daily Lisinopril 40 Mg Tabs (Lisinopril) ..... One tab. daily Hydrochlorothiazide 25 Mg Tabs (Hydrochlorothiazide) ..... One tab po daily BP today: 158/80 P rior BP: 156/90 (05/05/2012) Gregorio Shah MD Follow up: H er updated medication list for this problem includes: Dulera 200-5 Mcg/act Aero (Mometasone furo-formoterol fum) ..... 2 puffs once daily Gregorio Shah MD Follow up: H er updated medication list for this problem includes: Lipitor 20 Mg Tabs (Atorvastatin calcium) ..... Daily BP today: 158/80 Prior BP: 156/90 (05/05/2012) Gregorio Shah MD Follow up: H er updated medication list for this problem includes: Aspirin 325 Mg Tabs (Aspirin) ..... Take once daily Lisinopril 40 Mg Tabs (Lisinopril) ..... One tab. daily BP today: 158/80 Prior BP: 156/90 (05/05/2012) N uclear Stress Findings: 1. Adenosine mediated myocardial perfusion study 2 . Normal left ventricular systolic function with a calculated ejection fraction of 55%. 3 . No obvious significant scintigraphic evidence of myocardial ischemia or scar. (01/12/2009) C ardiac Cath: Small narrowed LAD distally with 40% muscle bridge. 20% circumflex. Preserved LV systolic function. (01/05/2008) C ardiac Cath Comments: We will consider her for ECP. (01/05/2008) Gregorio Shah MD routine: T he following medications were removed from the medication list: Lisinopril-hydrochlorothiazide 20-12.5 Mg Tabs (Lisinopril-hydrochlorothiazide) ..... One tab twice daily Her updated medication list for this problem includes: Aspirin 325 Mg Tabs (Aspirin) ..... Take once daily Lisinopril 40 Mg Tabs (Lisinopril) ..... One tab. daily BP today: 156/90 P rior BP: 158/76 (04/30/2011) Gregorio Shah MD routine: T he following medications were removed from the medication list: Vytorin 10-10 Mg Tabs (Ezetimibe-simvastatin) ..... 1 tablet by mouth daily Her updated medication list for this problem includes: Lipitor 20 Mg Tabs (Atorvastatin calcium) ..... Daily BP today: 156/90 Prior BP: 158/76 (04/30/2011) Gregorio Shah MD routine: T he following medications were removed from the medication list: Advair Diskus 250-50 Mcg/dose Aepb (Fluticasone-salmeterol) ..... One puff twice daily Proventil Hfa Aers (Albuterol sulfate aers) ..... 2 puffs by mouth daily Her updated medication list for this problem includes: Dulera 200-5 Mcg/act Aero (Mometasone furo-formoterol fum) ..... 2 puffs once daily BP today: 156/90 Prior BP: 158/76 (04/30/2011) Pulmonary Functions Reviewed: O 2 sat: 95 (05/05/2012) Gregorio Shah MD routine Gregorio Shah MD routine: T he following medications were removed from the medication list: Lisinopril-hydrochlorothiazide 20-12.5 Mg Tabs (Lisinopril-hydrochlorothiazide) ..... One tab twice daily Her updated medication list for this problem includes: Aspirin 325 Mg Tabs (Aspirin) ..... Take once daily Lisinopril 40 Mg Tabs (Lisinopril) ..... One tab. daily BP today: 156/90 Prior BP: 158/76 (04/30/2011) N uclear Stress Findings: 1. Adenosine mediated myocardial perfusion study 2 . Normal left ventricular systolic function with a calculated ejection fraction of 55%. 3. No obvious significant scintigraphic evidence of myocardial ischemia or scar. GC (01/12/2009) C ardiac Cath: Small narrowed LAD distally with 40% muscle bridge. 20% circumflex. Preserved LV systolic function. (01/05/2008) C ardiac Cath Comments: We will consider her for ECP. (01/05/2008) Orders: Heidi KG ([id number]) Gregorio Shah MD uncontrolled hyperte nsion: T he following medications were removed from the medication list: Hydrochlorothiazide 12.5 Mg Caps (Hydrochlorothiazide) ..... One tab. daily Her updated medication list for this problem includes: Aspirin 325 Mg Tabs (Aspirin) ..... Take once daily Lisinopril-hydrochlorothiazide 20-12.5 Mg Tabs (Lisinopril-hydrochlorothiazide) ..... One tab daily BP today: 158/76 P rior BP: 166/78 (02/26/2011) Gregorio Shah MD uncontrolled hyperte nsion: T he following medications were removed from the medication list: Singulair 10 Mg Tabs (Montelukast sodium) ..... 1 tablet by mouth daily as needed Her updated medication list for this problem includes: Advair Diskus 250-50 Mcg/dose Aepb (Fluticasone-salmeterol) ..... One puff twice daily Proventil Hfa Aers (Albuterol sulfate aers) ..... 2 puffs by mouth daily BP today: 158/76 Prior BP: 166/78 (02/26/2011) Pulmonary Functions Reviewed: O 2 sat: 99 (04/30/2011) Gregorio Shah MD uncontrolled hypertension Gregorio Shah MD uncontrolled hyperte nsion: H er updated medication list for this problem includes: Aspirin 325 Mg Tabs (Aspirin) ..... Take once daily Lisinopril-hydrochlorothiazide 20-12.5 Mg Tabs (Lisinopril-hydrochlorothiazide) ..... One tab daily BP today: 158/76 Prior BP: 166/78 (02/26/2011) N uclear Stress Findings: 1. Adenosine mediated myocardial perfusion study 2 . Normal left ventricular systolic function with a calculated ejection fraction of 55%. 3 . No obvious significant scintigraphic evidence of myocardial ischemia or scar. GC (01/12/2009) C ardiac Cath: Small narrowed LAD distally with 40% muscle bridge. 20% circumflex. Preserved LV systolic function. (01/05/2008) C ardiac Cath Comments: We will consider her for ECP. (01/05/2008) E chocardiogram: Normal left ventricular systolic function. Normal left ventricular size. Normal left ventricular wall thickness. There is E to A wave reversal consistent with impaired LV relaxation . Normal E/E` 8.0. L eft ventricular ejection fraction is estimated at 60%. There is mild enlargement of the left atrium. There is mild enlargement of right atrium. Mildly thickened aortic valve leaflets. There is trace physiologic aortic valve regurgitation. - (02/20/2010) Gregorio Shah MD uncontrolled hypertension Gregorio Shah MD 3 month follow-up: H er updated medication list for this problem includes: Aspirin 325 Mg Tabs (Aspirin) ..... Take once daily BP today: 166/78 Prior BP: 104/72 (08/28/2010) N uclear Stress Findings: 1. Adenosine mediated myocardial perfusion study 2 . Normal left ventricular systolic function with a calculated ejection fraction of 55%. 3 . No obvious significant scintigraphic evidence of myocardial ischemia or scar. (01/12/2009) C ardiac Cath: Small narrowed LAD distally with 40% muscle bridge. 20% circumflex. Preserved LV systolic function. (01/05/2008) C ardiac Cath Comments: We will consider her for ECP. (01/05/2008) E chocardiogram: Normal left ventricular systolic function. Normal left ventricular size. Normal left ventricular wall thickness. There is E to A wave reversal consistent with impaired LV relaxation . Normal E/E` 8.0. L eft ventricular ejection fraction is estimated at 60%. There is mild enlargement of the left atrium. There is mild enlargement of right atrium. Mildly thickened aortic valve leaflets. There is trace physiologic aortic valve regurgitation. - (02/20/2010) Gregorio Shah MD FOLLOW UP: B P today: 104/72 Prior BP: 131/76 (02/05/2010) N uclear Stress Findings: 1. Adenosine mediated myocardial perfusion study 2 . Normal left ventricular systolic function with a calculated ejection fraction of 55%. 3 . No obvious significant scintigraphic evidence of myocardial ischemia or scar. (01/12/2009) C ardiac Cath: Small narrowed LAD distally with 40% muscle bridge. 20% circumflex. Preserved LV systolic function. (01/05/2008) C ardiac Cath Comments: We will consider her for ECP. (01/05/2008) E chocardiogram: Normal left ventricular systolic function. Normal left ventricular size. Normal left ventricular wall thickness. There is E to A wave reversal consistent with impaired LV relaxation . Normal E/E` 8.0. L eft ventricular ejection fraction is estimated at 60%. There is mild enlargement of the left atrium. There is mild enlargement of right atrium. Mildly thickened aortic valve leaflets. There is trace physiologic aortic valve regurgitation. - (02/20/2010) Her updated medication list for this problem includes: Aspirin 325 Mg Tabs (Aspirin) ..... Take once daily Gregorio Shah MD FOLLOW UP: H er updated medication list for this problem includes: Avalide 300-25 Mg Tabs (Irbesartan-hydrochlorothiazide) ..... One tab daily Aspirin 325 Mg Tabs (Aspirin) ..... Take once daily BP today: 104/72 P rior BP: 131/76 (02/05/2010) Gregorio Shah MD FOLLOW UP: H er updated medication list for this problem includes: Vytorin Tabs (Ezetimibe-simvastatin tabs) ..... One tab daily BP today: 104/72 Prior BP: 131/76 (02/05/2010) Gregorio Shah MD FOLLOW UP: H er updated medication list for this problem includes: Aspirin 325 Mg Tabs (Aspirin) ..... Take once daily BP today: 104/72 Prior BP: 131/76 (02/05/2010) N uclear Stress Findings: 1. Adenosine mediated myocardial perfusion study 2 . Normal left ventricular systolic function with a calculated ejection fraction of 55%. 3 . No obvious significant scintigraphic evidence of myocardial ischemia or scar. (01/12/2009) C ardiac Cath: Small narrowed LAD distally with 40% muscle bridge. 20% circumflex. Preserved LV systolic function. (01/05/2008) C ardiac Cath Comments: We will consider her for ECP. (01/05/2008) E chocardiogram: Normal left ventricular systolic function. Normal left ventricular size. Normal left ventricular wall thickness. There is E to A wave reversal consistent with impaired LV relaxation . Normal E/E` 8.0. L eft ventricular ejection fraction is estimated at 60%. There is mild enlargement of the left atrium. There is mild enlargement of right atrium. Mildly thickened aortic valve leaflets. There is trace physiologic aortic valve regurgitation. - (02/20/2010) Gregorio Shah MD Yearly FU: T he following medications were removed from the medication list: Xopenex Hfa 45 Mcg/act Aero (Levalbuterol tartrate) ..... Qd Her updated medication list for this problem includes: Singulair 10 Mg Tabs (Montelukast sodium) ..... 1 tablet by mouth daily Advair Diskus 250-50 Mcg/dose Aepb (Fluticasone-salmeterol) ..... One puff twice daily Proventil Hfa Aers (Albuterol sulfate aers) ..... As directed BP today: 131/76 Prior BP: 148/94 (12/30/2008) Pulmonary Functions Reviewed: O 2 sat: 96 (02/05/2010) Gregorio Shah MD Yearly FU: H er updated medication list for this problem includes: Aspirin 325 Mg Tabs (Aspirin) ..... Take once daily Orders: E KG ([id number]) BP today: 131/76 Prior BP: 148/94 (12/30/2008) N uclear Stress Findings: 1. Adenosine mediated myocardial perfusion study 2 . Normal left ventricular systolic function with a calculated ejection fraction of 55%. 3 . No obvious significant scintigraphic evidence of myocardial ischemia or scar. (01/12/2009) C ardiac Cath: Small narrowed LAD distally with 40% muscle bridge. 20% circumflex. Preserved LV systolic function. (01/05/2008) C ardiac Cath Comments: We will consider her for ECP. (01/05/2008) E chocardiogram: TDS. Normal left ventricular systolic function. Normal left ventricular size. Normal left ventricular wall thickness. There is E to A wave reversal consistent with impaired LV relaxation. Normal E/E` 7.0. Left ventricular ejection fraction is estimated at 60%. There is trace physiologic mitral valve regurgitation. There is non-specific t hickening of the mitral valve leaflets. Normal aortic root. Normal pulmonary artery size. No significant valvular abnormalities. (01/12/2009) Gregorio Shah MD Yearly FU Gregorio Shah MD Yearly Follow-up: H er updated medication list for this problem includes: Crestor 10 Mg Tabs (Rosuvastatin calcium) ..... Take once daily BP today: 148/94 Prior BP: 111/87 (01/01/2008) Gregorio Shah MD Yearly Follow-up: T he following medications were removed from the medication list: Exforge 10-320 Mg Tabs (Amlodipine besylate-valsartan) ..... Qd Her updated medication list for this problem includes: Avalide 300-12.5 Mg Tabs (Irbesartan-hydrochlorothiazide) ..... One tab. daily Aspirin 325 Mg Tabs (Aspirin) ..... Take once daily Hydrochlorothiazide 25 Mg Tabs (Hydrochlorothiazide) ..... 1 tablet by mouth daily BP today: 148/94 P rior BP: 111/87 (01/01/2008) Gregorio Shah MD Date Name Cardiac Cath - GC HISTORY OF PROCEDURES Procedure Date Procedure Name Provider Procedure Notes S tatus Regadenoson, 4 units Gregorio Shah MD completed Cardiolite, 2 units Gregorio Shah MD completed SPECT Images Clarke Golden MD completed Stress EKG To Moore MD complete d FVC / MVV - 49851 Gregorio Shah MD co mpleted FRC - 55735 Gregorio Shah MD complete d SpO2 w/o 6min walk/titration Gregorio Shah MD completed DLCO - 82623 Gregorio Shah MD complet ed EKG Gregorio Shah MD completed SNOMED-CT: 917863294 [id number] Current Medications Documented Gregorio Shah MD completed SNOMED-CT: [id number] Physical Exam, Performed: Pulse Exam of Foot Gregorio Shah MD completed EKG Gregorio Shah MD completed SNOMED-CT: [id number] [id number] Current Medications Documented Gregorio Shah MD completed SNOMED-CT: 126367013 [id number] Current Medications Documented Gregorio Shah MD completed EKG Gregorio Shah MD completed SNOMED-CT: [id number] Current Medications Documented Gregorio Shah MD completed DLCO - 40353 Mitchell Ferrara completed FRC - 32923 Mitchell Ferrara completed FVC - 20661 Mitchell Ferrara completed ePrescribe - Check t his box if eRx is used Gregorio Shah MD completed EKG Gregorio Shah MD completed EKG Gregorio Shah MD completed EKG Gregorio Shah MD completed
--- OUTSIDE RECORDS SUMMARY | 2024-06-11 14:59 | XMS_ITS | Data Portability ---
Author Organization [place] [facility], Main Office Address [address] [place] [address] Care Team Providers Care Pedodontist Name Role Phone PERRY GARCÍA Primary Care Provider PERRY GARCÍA Referring Provider [phone] Assessment Encounter Date Assessment Date Assessment LastModified by Organization Details LastModified Time 02/06/2024 02/06/2024 The patient has a right 4th trigger finger recurrent in nature. She denies any trauma or injury not sure why it flared up again. She has pretty significant symptoms she wanted some pain relief we talked about this in detail today I have told her we could surgically release it but it is going to take some time to get her on the schedule and get that done in the meantime she wanted a shot of cortisone. I advised her she would have to wait a little while to have the surgery done if she has a shot today but she wanted to proceed. Today we discussed the surgery in detail including risks benefits limitations alternatives the procedure itself and the recovery time. Under sterile conditions I injected the patient's right 4th finger flexor tendon sheath at the A1 jesus site with 2 cc of 0.5% bupivacaine and 10 mg of Kenalog. Patient tolerated the procedure well. We will get her set up to see Dr. Arnett in the near future talk about surgical release if the shot does not give her good relief she is going to wait a month and see how she does with the shot. She voiced understanding agrees above plan she will call for any further problems difficulties or questions. Not available 02/06/2024 11:39:11 02/12/2024 02/12/2024 The patient has what appears to be a large rotator cuff tendon tear x-rays show significant superior subluxation of the humeral head she has onset of weakness after a fall 2 months ago. Prior to the injury she was not having any pain in the shoulder but does state she was seen by Dr. Zarate 4 years ago and was having pain at that time with impingement and tendinitis and had a shot of cortisone and has been okay until her recent fall The patient may also have a long head biceps tendon tear or strain. We talked about treatment options today I have advised her we could get an MRI scan to take a look and possibly talk about surgical intervention but she is on multiple medications she is 73 years of age she would rather avoid surgery her healing potential would be likely somewhat diminished due to her physical and medical status. She states for now she would rather get by with conservative measures see how she does with a shot of cortisone in oral prednisone. Under sterile conditions I injected the patient's right shoulder subacromial space in the office with 4 cc of 0.5% bupivacaine and 20 mg of Kenalog. Patient tolerated procedure well. She will take the oral prednisone offered her formal therapy she declined she is going to work on a home exercise program on her own she was given instructions on how to do this today. I will see her back in 1 month if her symptoms continue to be significant we will proceed with an MRI scan. The patient voiced understanding agrees above plan she will call for any further problems difficulties or questions. Not available 02/12/2024 11:35:48 03/11/2024 03/11/2024 The patient has what appears to be a large rotator cuff tendon tear of the right shoulder with weakness and superior subluxation of the humeral head noted on previous x-rays. We talked about treatment options basically she can live with her do exercises and use activity modification as well. She is currently on meloxicam 15 mg daily. I have told her it is too early for another shot of cortisone I did offer her an MRI scan to take a look but this would likely show a large rotator cuff tendon tear and likely way to give her good long-term relief would likely be to proceed with surgical intervention. Although she has multiple medical problems and I am not sure that she would have good tissue for repair and also I think she has a fairly significant large tear that may not be repairable. At this point she states she would like to avoid surgery and she will work on exercises on her own at home. She was given another set of exercise sheets today for home use. If she decides she wants to do the MRI scan she call us at any time we would get her set up and she would follow up with Dr. Arnett to discuss surgical options if possible. The patient voiced understanding and agreed with the above plan I will see her back as needed she will call us for any further problems difficulties or questions. Not available 03/11/2024 10:03:17 Plan of Treatment Reminders Order Date Submit Date Provider Last Modified By Organization Details Last Modified Time Details Appointments None recorded. Lab HbA1c (hemoglobin A1c), blood 2023 [place] [facility], [address], [place] [address], [place], [address], 07:54:06 Referral otolaryngol ogist referral - cockroach left ear canal . Please eval and treat. Please call patient to schedule an appointment . Thank you 2023 [email or web address] Eddie Mancera MD, [address], [place], [address], 4 08:43:16 orthopedic surgeon referral - 4th finger on right hand . Please eval and treat. Please call patient to schedule an appointment . Thank you 2023 [email or web address] [facility], [address], [place], [address], 4 08:43:40 Procedures injection/a spiration joint/bursa (PROC) 2023 024 [email or web address] In-Office Order, Internal Use Only DO Not Attach Compendium DO Not Attach Compendium, Do Not Delete/merge, [id number] 4 11:24:33 injection/a spiration joint/bursa (PROC) 2023 024 [email or web address] In-Office Order, Internal Use Only DO Not Attach Compendium DO Not Attach Compendium, Do Not Delete/merge, [id number] 4 11:13:30 Surgeries None recorded. Imaging XR, shoulder 2023 [email or web address] [facility], [address], [place], [address], 4 13:09:42 Medication Orders promethazin e-DM 6.25 mg-15 mg/5 mL oral syrup 2023 [facility], [address] [place] [address], [id number], 4 10:27:52 azithromyci n 250 mg tablet 2023 [facility], [address] [place] [address], [address], 4 10:27:51 promethazin e-DM 6.25 mg-15 mg/5 mL oral syrup 2023 024 [facility], [address] [place] [address], [address], 4 10:27:52 rosuvastati n 20 mg tablet 2023 024 [facility], [address] [place] [address], [address], 4 10:21:49 sertraline 100 mg tablet 2023 024 [facility], [address] [place] [address], [address], 4 10:20:12 buspirone 15 mg tablet 2023 024 [facility], [address] [place] [address], [address], 4 10:20:11 prednisone 10 mg tablets in a dose pack [email or web address] [place] [address] Pharmacy [facility], [address] [place] [address], [address], 4 15:35:26 bupivacaine HCl 0.5 % (5 mg/mL) injection solution [address] [facility], [address] [place] [address], [address], 4 11:38:55 Kenalog 10 mg/mL suspension for injection 2023 024 [facility] [place] [address] Pharmacy 1071, [address] [place] [address], [address], 5 02:30:23 bupivacaine HCl 0.5 % (5 mg/mL) injection solution 2023 024 [email or web address], [address] [place] [address], [address], 4 12:16:23 Kenalog 10 mg/mL suspension for injection 2023 024 [facility] [place] [address] Pharmacy 1071, [address] [place] [address], [address], 5 02:30:23 Rexulti 0.5 mg tablet 2023 024 [facility], [address] [place] [address], [address], 4 10:06:27 Patient TargetsNo targets recorded. Patient InstructionsNo instructions recorded. 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 Please eval and treat. Please call patient to schedule an appointment. Thank you Referring Physician: Perry García [facility], Encounter Date: 01/07/2024 Orthopedic Surgeon Referral for Trigger finger of right hand 4th finger on right hand . Please eval and treat. Please call patient to schedule an appointment. Thank you Referring Physician: Perry García [facility], Encounter Date: 01/07/2024 Results Created Date Observation Date Name Description Value Unit Range Abnormal Flag Note LastModifiedBy Organization Detail LastModifiedTime 02/12/20 24 XR, shoul steven No observ ation record ed. [email or web address] [facility] [address], [place], [address], 02/12/2024 11:33:50 Result Notes None recorded. Problems Name Problem SNOMED Code Status Onset Date Resolution Date Notes Provider Name and Address Organization Details Recorded Time Chronic vertigo 0193039890861 5 Active 2022 Not Available [facility] 4 22:39:32 Gastroesop hageal reflux disease 914204864 Active 2022 Not Available [employer] 4 22:39:32 Arthritis of right knee 9081927025960 102 Active 2020 Not Available [employer] 4 22:39:32 Depressive disorder 26168310 Active 2019 Not Available [employer] 4 22:39:32 Hypertensi ve disorder 88608377 Active 2019 Not Available [facility] 4 22:39:32 Neuropathy 376662091 Active 2019 Not Available [facility] 4 22:39:32 Anxiety 26068064 Active 2019 Not Available [facility] 4 22:39:33 Diabetes mellitus 02520374 Active 2019 Not Available [facility] 4 22:39:33 Allergic rhinitis 34264896 Active 2022 Not Available [facility] 4 22:39:33 Lateral epicondyli tis of right humerus 1884553656556 07 Active 2022 Not Available [facility] 4 22:39:32 Lateral epicondyli tis of left humerus 0199407988683 00 Active 2022 Not Available [facility] 4 22:39:32 Hyperlipid emia 55206471 Active 2022 Not Available [facility] 4 22:39:33 SARS-CoV-2 Active 2022 Not Available [facility] 4 22:39:33 Sleep apnea 23878021 Active 2023 [address], [address], [place], [address] , [place] [facility] 4 11:26:00 Chronic obstructiv e pulmonary disease 33459137 Active 2023 W[address]TER Botello [address], [address], [place], [address] , [place] [facility] 4 17:04:56 Foreign body in left ear 1900940788215 9100 Active 2023 W[address] Botello [address], [address], [place], [address] , [place] [facility] 4 12:39:55 Trigger finger of right hand 3467393208925 9101 Active 2023 [address] Botello [address], [address], [place], [address] , [place] [facility] 4 12:41:48 Pain in right hand 2838049387065 09 Active 2023 [place], [place] [facility] 4 11:12:17 Acquired trigger finger of right ring finger 0958459318221 08 Active [address]23 [address], [address], [place], [address] , [place] [facility] 4 11:37:59 Pain of right shoulder joint 7275493262215 9100 Active 2023 Leyda Dickinson CNA null, [place] [facility] 4 10:46:54 Full thickness rotator cuff tear 284432975 Active 2023 [address]ivas [address], [address], [place], [address] , [place] [facility] 4 11:34:19 Cough 33096491 Active 2023 WALTER Botello [address] [facility], [facility] [address], [place], [address] , [facility] [employer] 4 10:24:27 Major depressive disorder 554770743 Active 2024 Dillon [place] RN [facility], [employer] 5 10:15:37 Notes:Medical History: Anxie ty/Depression Vertigo COVID infection Rhinitis Obesity Hypertension Hyperlipidemia T2DM with neuropathy Granulomatous disease (chest, spleen) SHAUN Fatty liver Cholelithiasis Thoracolumbar spondylosis Left rotator cuff tendinitis Bilateral lateral epicondylitis Knee/Hand/Shoulder OA Some problems listed in Documents: #[id number], #[id number], #[id number], #[id number], #[id number] could not be added to this patient's chart. Please review these documents and add these problems to the patient's chart manually as needed. Problem Notes None recorded. Procedures Surgical History Date Name Laterality Status Provider Name and Address Organization Details Recorded Time Medicare Wellness CPT Code, subsequent completed June SHEILA Pena [employer] 09/04/2023 16:12:38 Carpal tunnel surgery completed Not Available [facility] 05/22/2022 02:46:36 delivery completed Not Available [facility] 05/22/2022 02:46:36 Imaging Results Imaging Date Name Status LastModified by Organiz ation Details LastModified Time 02/12/2024 XR, shoulder completed [email or web address] [facility] [address], [place], [address], 02/12/2024 11:33:50 Procedure Notes None recorded. Medical Equipment None Reported. Allergies No known drug allergies Medications Name Sig Start Date Stop Date Status Note LastModified by Organization Details LastModified Time atorvastat in 40 mg tablet 02/13 completed Not Available Not Available Not Available metformin 500 mg tablet TAKE 1 TABLET BY MOUTH ONCE DAILY active Not Available Not Available No t Available bupropion HCl SR 150 mg tablet,12 hr sustained- release 04/18 completed Not Available Not Available Not Available promethazi ne-DM 6.25 mg-15 mg/5 mL oral syrup Take 5 mL every 4 hours by oral route as needed for 10 days. 2024 active Not Available Not Available Not Avai lable fluticason e 250 mcg-salmet claire 50 mcg/dose blistr powdr for inhalation INHALE 1 PUFF BY MOUTH TWICE DAILY. RINSE MOUTH WITH WATER AFTER USE. DO NOT SWALLOW. 04/25 completed Not Available Not Available Not Available atorvastat in 80 mg tablet Take 1 tablet by mouth once daily 2024 active Not Available Not Available Not Avai lable prednisone 10 mg tablet TAKE 1 TABLET BY MOUTH THREE TIMES DAILY FOR 3 DAYS THEN TAKE 1 TAB BY MOUTH TWICE DAILY FOR 2 DAYS THEN TAKE 1 TAB BY MOUTH ONCE DAILY FOR 1 DAY 03/09 completed Not Available Not Available Not Available azithromyc in 250 mg tablet TAKE 2 TABLETS BY MOUTH ON DAY 1, AND THEN TAKE 1 TABLET BY MOUTH ONCE A DAY ON DAY 2 THROUGH DAY 5 2024 active Not Available Not Available Not Avai lable aspirin 325 mg tablet Take 1 tablet every day by oral route. 2019 active Not Available Not Available Not Avai lable benzonatat e 200 mg capsule TAKE 1 CAPSULE BY MOUTH THREE TIMES DAILY NEEDED 06/17 completed Not Available Not Available Not Available hydrocodon e 5 mg-acetami nophen 325 mg tablet Take 1 tablet twice a day by oral route as needed for 30 days. 2024 active Not Available Not Available Not Avai lable meloxicam 15 mg tablet TAKE 1 TABLET BY MOUTH ONCE DAILY active Not Available Not Available No t Available Medrol (Tobin) 4 mg tablets in a dose pack use as directed 06/18 completed Not Available Not Available Not Available bupivacain e HCl 0.5 % (5 mg/mL) injection solution Take 20 mg by injection route. 2023 active Not Available Not Available Not Avai lable prednisone 20 mg tablet 02/13 completed Not Available Not Available Not Available dexamethas one 6 mg tablet TAKE 1 TABLET BY MOUTH ONCE DAILY IN THE MORNING FOR 7 DAYS 06/17 completed Not Available Not Available Not Available sertraline 100 mg tablet Take 2 tablets by mouth once daily 2024 active Not Available Not Available Not Avai lable Accu-Chek Softclix Lancets 07/06 completed Not Available Not Available Not Available amlodipine 5 mg tablet TAKE 1 TABLET BY MOUTH ONCE DAILY active Not Available Not Available No t Available sulfametho xazole 800 mg-trimeth oprim 160 mg tablet TAKE 1 TABLET BY MOUTH TWICE DAILY FOR 3 DAYS active Not Available Not Available No t Available hydrocodon e 10 mg-acetami nophen 325 mg tablet 02/13 completed Not Available Not Available Not Available tramadol 50 mg tablet TAKE 1 TABLET BY MOUTH EVERY 6 HOURS NEEDED 02/02 completed Not Available Not Available Not Available prednisone 10 mg tablets in a dose pack Take 1 tab by mouth, 3 times a day for 3 daysTake 1 tab by mouth 2 times a day for 2 daysTake 1 tab by mouth once a day for 1 day 03/09 completed Not Available Not Available Not Available ofloxacin 0.3 % ear drops 03/18 completed Not Available Not Available Not Available citalopram 20 mg tablet active Not Available Not Available Not Available Nitrostat 0.[address] sublingua l at onset of CP as needed. 07/06 completed Not Available Not Available Not Available dicyclomin e 20 mg tablet 02/13 completed Not Available Not Available Not Available OneTouch Ultra Test strips USE DIRECTED ONCE DAILY active Not Available Not Available No t Available Kenalog 10 mg/mL suspension for injection Take 20 mg by injection route. 2023 active [facility]: [phone] Not Available Not Available Not Available meclizine 25 mg tablet Take 1 tablet 3 times a day by oral route as needed. 06/17 completed Not Available Not Available Not Available diazepam 2 mg tablet Take 1 tablet by mouth three times daily as needed 12/29 completed stay off this med Not Available Not Available Not Available benzonatat e 100 mg capsule 02/13 completed Not Available Not Available Not Available hydrocodon e 7.5 mg-acetami nophen 325 mg tablet 06/11 completed Not Available Not Available Not Available cephalexin 500 mg capsule 02/13 completed Not Available Not Available Not Available pantoprazo le 40 mg tablet,del ayed release Take 1 tablet by mouth once daily 2024 active Not Available Not Available Not Avai lable metformin 1,000 mg tablet 02/13 completed Not Available Not Available Not Available Cipro 500 mg tablet Take 1 tablet every 12 hours by oral route. 02/05 completed Not Available Not Available Not Available buspirone 10 mg tablet Take 1 tablet by mouth twice daily active Not Available Not Available No t Available Sleep Aid (diphenhyd ramine) 50 mg capsule Take 1 capsule every 4 hours by oral route. 07/06 completed Not Available Not Available Not Available gabapentin 300 mg capsule TAKE 1 CAPSULE BY MOUTH THREE TIMES DAILY active Not Available Not Available No t Available omeprazole 20 mg capsule,de layed release 02/13 completed Not Available Not Available Not Available diclofenac sodium 75 mg tablet,del ayed release 02/13 completed Not Available Not Available Not Available hydrochlor othiazide 25 mg tablet Take 1 tablet every day by oral route in the morning for 90 days. 2024 active Not Available Not Available Not Avai lable gabapentin 100 mg capsule TAKE 1 CAPSULE BY MOUTH THREE TIMES DAILY 04/02 completed Not Available Not Available Not Available Cheratussi n AC 10 mg-100 mg/5 mL oral liquid 02/13 completed Not Available Not Available Not Available cefuroxime axetil 500 mg tablet 02/13 completed Not Available Not Available Not Available levofloxac in 500 mg tablet Take 1 tablet every 24 hours by oral route. 12/05 completed Not Available Not Available Not Available estradiol 0.01% (0.1 mg/gram) vaginal cream Use small amount to vaginal area 3 times a week 07/06 completed Not Available Not Available Not Available levofloxac in 750 mg tablet 02/13 completed Not Available Not Available Not Available albuterol sulfate HFA 90 mcg/actuat ion aerosol inhaler INHALE 2 PUFFS BY MOUTH EVERY 4 HOURS NEEDED FOR WHEEZING OR SHORTNESS OF BREATH active Not Available Not Available No t Available lisinopril 40 mg tablet TAKE 1 TABLET EVERY DAY 02/05 completed cough Not Available Not Available Not Available losartan 100 mg tablet Take 1 tablet by mouth once daily 2024 active Not Available Not Available Not Avai lable fluticason e propionate 50 mcg/actuat ion nasal spray,susp ension 1 sprays in each nostril twice daily active Not Available Not Available No t Available metformin ER 500 mg tablet,ext ended release 24 hr Take 1 tablet twice a day by oral route. 04/02 completed Not Available Not Available Not Available sertraline 50 mg tablet 12/11 completed Not Available Not Available Not Available amoxicilli n 875 mg-potassi um clavulanat e 125 mg tablet TAKE 1 TABLET BY MOUTH EVERY 12 HOURS 06/17 completed Not Available Not Available Not Available buspirone 15 mg tablet Take 1 tablet twice a day by oral route after meal(s) for 30 days. active Not Available Not Available No t Available tobramycin 0.3 %-dexameth asone 0.1 % eye drops,susp ension 02/13 completed Not Available Not Available Not Available rosuvastat in 20 mg tablet Take 1 tablet every day by oral route in the morning for 30 days. active Not Available Not Available No t Available Marcaine (PF) 0.5 % (5 mg/mL) injection solution Take 10 mg by injection route. 08/30 completed Not Available Not Available Not Available Menopause Support 07/06 completed Not Available Not Available Not Available lidocaine (PF) 10 mg/mL (1 %) injection solution In office injection administe red by the provider 04/23 completed [facility]: [phone] Not Available Not Available Not Available Januvia 100 mg tablet TAKE 1 TABLET EVERY DAY 12/05 completed Not Available Not Available Not Available Fluvirin 9177-1766 45 mcg (15 mcg x 3)/0.5 mL intramuscu lar suspension 02/13 completed Not Available Not Available Not Available Fluarix Quad (PF) 60 mcg (15 mcg x 4)/0.5 mL IM syringe 02/13 completed Not Available Not Available Not Available Rexulti 0.5 mg tablet Take 1 tablet by mouth once daily 2024 active Not Available Not Available Not Avai lable naloxone 4 mg/actuati on nasal spray CALL 911. ADMINISTE R A SINGLE SPRAY INTRANASA LLY INTO ONE NOSTRIL UPON SIGNS OF OPIOID OVERDOSE. MAY REPEAT AFTER 3 MINUTES IF NO RESPONSE. 07/06 completed Not Available Not Available Not Available Vraylar 1.5 mg (1)-3 mg (6) capsules in a dose pack TAKE 1 BY MOUTH ONCE DAILY FOR 6 DAYS active Not Available Not Available No t Available Vraylar 1.5 mg capsule Take 1 capsule every day by oral route for 14 days. 2024 active Not Available Not Available Not Avai lable Vraylar 3 mg capsule Take 1 capsule every day by oral route for 30 days. 2024 active Not Available Not Available Not Avai lable OneTouch Ultra Blue Test Strip USE 1 STRIP TO CHECK GLUCOSE TWICE DAILY 07/06 completed Not Available Not Available Not Available OneTouch Ultra2 Meter USE TO TEST BLOOD GLUCOSE active Not Available Not Available No t Available OneTouch Delica Plus Lancet 33 gauge USE TO TEST BLOOD GLUCOSE DAILY DIRECTED active Not Available Not Available No t Available Paxlovid 300 mg (150 mg x 2)-100 mg tablets in a dose pack 1 each twice daily 06/17 completed Not Available Not Available Not Available Lagevrio 200 mg capsule (EUA) TAKE 4 CAPSULES BY MOUTH EVERY 12 HOURS FOR 5 DAYS 06/17 completed Not Available Not Available Not Available Vitals Date Recorded Body height Body mass index (BMI) Body weight Body temperature Heart rate Oxygen saturation Oxygen saturation in Arterial blood by Pulse oximetry Systolic blood pressure Diastolic blood pressure Provider Name and Address Organization Details Last Updated DateTime 165.1 cm 38.4 kg/m2 229082. 84 g 97.8 [degF] 65 /min 98 % 98 % 150 mm[Hg] 84 mm[Hg] Miladys Gutierrez RN [facility] 12:33:37 Date Recorded Body height Body mass index (BMI) Body weight Provider Name and Address Organization Details Last Updated DateTime 02/06/2024 165.1 cm 37.8 kg/m2 684764.47 g Leyda Dickinson CNA [employer] 02/06/2024 11:11:42 Date Recorded Body height Body mass index (BMI) Body weight Provider Name and Address Organization Details Last Updated DateTime 02/12/2024 165.1 cm 37.8 kg/m2 140010.47 g Leyda Dickinson CNA [employer] 02/12/2024 10:45:54 Date Recorded Body height Body mass index (BMI) Body weight Provider Name and Address Organization Details Last Updated DateTime 03/11/2024 165.1 cm 37.8 kg/m2 181689.47 g Leyda Dickinson [facility] 03/11/2024 09:39:20 Date Recorded Body height Body mass index (BMI) Body weight Body temperature Heart rate Oxygen saturation Oxygen saturation in Arterial blood by Pulse oximetry Systolic blood pressure Diastolic blood pressure Provider Name and Address Organization Details Last Updated DateTime 165.1 cm 37.8 kg/m2 071932. 47 g 98 [degF] 68 /min 97 % 97 % 128 mm[Hg] 72 mm[Hg] Miladys Gutierrez RN [facility] 10:11:19 Social History Question Answer Notes LastModified by Organization Details LastModified Time Tobacco Smoking Status Former Smoker Princess [email or web address] [facility] 06/18/2022 10:19:22 Do You Have An Advance Directive? No [id number] Information not available 05/22/2022 What Is Your Level Of Alcohol Consumption? None [email or web address] Information not available 07/07/2023 Do You Wear A Helmet When Biking? Yes Information not available 06/18/2022 Are You Blind Or Do You Have Difficulty Seeing? No [email or web address] Information not available 06/18/2022 In The 14 Days Before Symptom Onset, Have You Had Close Contact With A Laboratory-confi rmed COVID-19 While That Case Was Ill? No [email or web address] Information not available 06/18/2022 In The 14 Days Before Symptom Onset, Have You Had Close Contact With A Person Who Is Under Investigation For COVID-19 While That Person Was Ill? No [email or web address] Information not available 06/18/2022 Are You Deaf Or Do You Have Serious Difficulty Hearing? No [email or web address] Information not available 06/18/2022 What Type Of Diet Are You Following? REGULAR [id number] Information not available 05/22/2022 Have There Been Any Changes To Your Family Or Social Situation? Yes Brother Passed [email or web address] Information not available 06/18/2022 What Is The Fluoride Status Of Your Home? Unknown [email or web address] Information not available 06/18/2022 Are There Any Guns Present In Your Home? No [email or web address] Information not available 06/18/2022 Do You Use Insect Repellent Routinely? No Information not available 06/18/2022 Where Do You Live? SingleLevelHouse [email or web address] Information not available 06/18/2022 Advance Directive- Providers Has Reviewed Directive And Consents To Follow Them (insert Provider Name With Any Objectives In Notes Field) No [id number] Information not available 05/22/2022 Do You Have A Medical Power Of Herbologist? No [email or web address] Information not available 06/18/2022 Do You Have Any Pets? Yes [email or web address] Information not available 06/18/2022 What Is Your Relationship Status? [id number] Information not available 05/22/2022 Do You Use Your Seat Belt Or Car Seat Routinely? Yes Information not available 06/18/2022 Do You Have Smoke And Carbon Monoxide Detectors In Your Home? Yes [email or web address] Information not available 06/18/2022 Are You Passively Exposed To Smoke? No [email or web address] Information not available 06/18/2022 Are There Any Smokers In Your House? No [email or web address] Information not available 06/18/2022 How Much Tobacco Do You Smoke? 3+ PPD [id number] Information not available 05/22/2022 Do You Participate In Social Media? Yes [email or web address] Information not available 06/18/2022 Do You Feel Stressed (tense, Restless, Nervous, Or Anxious, Or Unable To Sleep At Night)? [id number] [email or web address] Information not available 06/18/2022 Do You Use Sunscreen Routinely? Yes [email or web address] Information not available 06/18/2022 How Many Years Have You Smoked Tobacco? 40 dtogqshe69 Information not available 06/18/2022 Have You Recently Traveled Abroad? No [email or web address] Information not available 06/18/2022 Are You Currently In School? No [email or web address] Information not available 06/18/2022 Do You Have Any Dietary Restrictions? No [email or web address] Information not available 06/18/2022 Sex: Unknown Functional Status Question Answer Note LastModified by Organizat ion Details LastModified Time Do you have difficulty walking or climbing stairs? No [email or web address] Information not available 06/18/2022 Do you have transportation difficulties? Yes daughter bring to appts udyawmgr67 Information not available 06/18/2022 Are you able to walk? YESASSIST gfaehqie70 Information not available 06/18/2022 Do you have difficulty doing errands alone? Yes [email or web address] Information not available 06/18/2022 Are you able to care for yourself? Yes [email or web address] Information n ot available 06/18/2022 Do you have difficulty dressing or bathing? No [email or web address] Information not available 06/18/2022 What is your exercise level? None [id number] Information not available 05/22/2022 Mental Status Question Answer Note LastModified by Organization D etails LastModified Time Do you have difficulty concentrating, remembering or making decisions? No [email or web address] Information no t available 06/18/2022 Family History Relationship Description Onset Age of this Age Resolved Age Notes LastModified by Organization Details LastModified Time Father Heart disease [id number] Not available 05/22/2022 02:46:46 Mother Cardiomegaly [email or web address] Not alma ilable 06/18/2022 10:19:20 Mother Hypertensive disorder [email or web address] Not available 2023 09:14:41 Mother Diabetes mellitus MIGRATION.278 [id number] Not available 05/22/2022 02:46:46 Son Family history of malignant neoplasm Not available 06/18 10:19:20 Paternal Grandfather Diabetes mellitus [id number] Not available 05/22/2022 02:46:46 Sister Diabetes mellitus MIGRATION.030 [id number] Not available 05/22/2022 02:46:46 Sister Diabetes mellitus MIGRATION.181 [id number] Not available 05/22/2022 02:46:46 Brother Diabetes mellitus MIGRATION.923 [id number] Not available 05/22/2022 02:46:46 Maternal Grandfather Family history of malignant neoplasm [email or web address] Not available 06/18 10:19:20 Father Hypertensive disorder [email or web address] Not available 2023 09:14:41 Medical History Condition Response ARTHRITIS Y DIABETES, TYPE Y OSTEOPOROSIS Y USE OF NSAIDS Y COPD Y Gynecological HistoryNo gynecological history recorded. Obstetrics History GPAL:G 0 P 0 0 0 0 Immunizations Vaccine Type Date Status Note Provider Nam e and Address Organization Details Recorded Time Influenza, high-dose, quadrivalent, PF 02/21/2022 completed Not Available [facility] 4 22:39:33 Influenza, high-dose, quadrivalent, PF 01/30/2023 completed Petra Shankar MD [address], [place], [address], [facility] 01/31/2023 06:14:49 Past Encounters Encounter ID Performer Location Encounter Start Date Encounter Closed Date Diagnosis/Indication Diagnosis SNOMED-CT Code Diagnosis ICD10 Code Diagnosis Note [id number] [facility] [place] [address] [place] [address] 07/06/2020 00:00:00 07/06/2020 20:32:41 [id number] [facility] [address] [facility] [address] [place] [address] 10/05/2020 00:00:00 10/05/2020 11:10:50 [id number] [facility] [place] [address] [facility] [address] [place] [address] 11/09/2020 00:00:00 11/09/2020 11:29:24 [id number] [facility] [place] [address] [place] [address] 12/11/2020 00:00:00 12/12/2020 08:40:42 [id number] [facility] [place] [address] [facility] [address] [place] [address] 12/19/2020 00:00:00 12/19/2020 14:20:54 [id number] [facility] [place] [address] [facility] [address] [place] [address] 01/23/2021 00:00:00 01/23/2021 15:55:43 [id number] [facility] [place] [address] [place] [address] 04/23/2021 00:00:00 04/23/2021 20:44:28 [id number] [facility] [place] [address] [facility] [place] [address] 08/07/2021 00:00:00 08/08/2021 06:13:08 [id number] [facility] [place] [address] [place] [address] [place] [address] 12/05/2021 00:00:00 12/05/2021 14:06:13 [id number] [facility] [place] [address] [place] [address] [place] [address] 12/24/2021 00:00:00 12/24/2021 21:05:49 [id number] [facility] [place] [address] [place] [address] [place] [address] 02/21/2022 00:00:00 02/21/2022 19:02:31 [id number] Petra Shankar MD [facility] [place] [address] [place] [address] [place] [address] 06/18/2022 10:15:02 06/18/2022 10:56:38 Chronic vertigo 2260622150 9105 R42 Break valium 2 mg in half and take this up to TID Acute sinusitis 25922649 J01.90 Pain in right hand 19396 53542 64614 M79.641 Type 2 cara betes mellitus without complication 365559955 E11.9 A1C is 6.6% Continue same meds Gastroesop hageal reflux disease 099829406 K21.00 Chronic ob structive pulmonary disease 07159334 J44.9 [id number] Petra Shankar MD [facility] [place] [address] [place] [address] [place] [address] 10/21/2022 14:51:06 10/21/2022 16:04:28 Atrophic vaginitis 31348688 N95.2 Pain of le ft shoulder joint 4564503885 4051169 M25.512 Anxiety 97181054 F41.9 [id number] WALTER Rivas [facility] [place] [address] [place] [address] 01/23/2023 08:42:10 01/23/2023 10:32:36 Pain of left shoulder joint 3227942697 7755107 M25.512 Tendinitis of left rotator cuff 9550175729 5475321 M67.235 [id number] Petra Shankar MD [facility] [place]cf[address] [address] [facility] [place] [address] 01/30/2023 11:17:47 01/30/2023 13:59:45 Pain of bilateral knee joints 8150807732 06704 M25.561 Will stop tramadol. Will start hydrocodon e. F/u in 1 month. Lateral ep icondylitis of right humerus 5768092562 00920 M77.11 Tennis elbow strap. Ice and heat Lateral ep icondylitis of left humerus 8554487679 00909 M77.12 Tennis elbow strap. 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 of right ring finger 1030375774 12650 M65.498 [id number] WALTER Botello [facility] Emmanuel bogdan [address] [place] [address] 09/18/2023 10:50:30 09/18/2023 11:28:45 Adult health examination 836575088 Z00.00 Screening for disorder 733713495 Z13.9 Diabetes mellitus 261106 09 E11.9 Sleep apnea 78856547 G47 .30 Allergic rhinitis 687308 04 J30.9 Anxiety 71464350 F41.9 Arthritis of right knee 5922469901 085984 M13.861 Depressive disorder 3548 9007 F32.A Gastroesop hageal reflux disease 643535633 K21.9 Hyperlipidemia 62605863 E78.5 Hypertensive disorder 38 970022 I10 Neuropathy 846398934 G62 .9 [id number] WALTER Botello [facility] [address] [place] [address] 01/07/2024 12:12:57 01/07/2024 12:49:58 Foreign body in left ear 1276594223 3419441 T16.2XXA Trigger fi nger of right hand 4601889608 9492248 M65.30 Allergic rhinitis 534139 04 J30.9 Anxiety 63532823 F41.9 Depressive disorder 3548 9007 F32.A Chronic ob structive pulmonary disease 55837952 J44.9 Gastroesop hageal reflux disease 492584541 K21.9 Hyperlipidemia 67817626 E78.5 Hypertensive disorder 38 760408 I10 Neuropathy 206297804 G62 .9 Sleep apnea 94965262 G47 .30 [id number] [facility] [place] 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 [place] [address] 02/12/2024 10:42:43 02/12/2024 13:09:42 Pain of right shoulder joint 5854362930 3255619 M25.511 Full thick ness rotator cuff tear 553955058 M75.434 [id number] [facility] [address] [place] [address] 03/11/2024 09:35:04 03/11/2024 10:09:54 Pain of right shoulder joint 9238356098 7228705 M25.511 Full thick ness rotator cuff tear 128767786 M75.229 [id number] WALTER Botello [facility] [address] [place] [address] 03/18/2024 09:56:12 03/18/2024 10:40:10 Mixed anxiety and depressive disorder 408650092 F41.8 Hyperlipidemia 68935384 E78.5 Diabetes mellitus 848165 09 E11.9 Cough 68413412 R05.9 Hypertensive disorder 38 762567 I10 Pain of ri ght shoulder joint 9322439805 8307228 M25.511 Trigger fi nger of right hand 4207615784 8630531 M65.30 Sleep apnea 82099190 G47 .30 Health Concerns Section Related Observation LastModified by Organization Detai ls LastModified Time None Recorded Concern Status LastModified by Organization Details LastModified Time None Recorded Advance Directives Directive N: Payers Encounter Date Sequence Insurance Name Policy Number Policy Guerra Covered Member ID Guerra Member ID Guarantor Name 01/07/2024 1 [facility] (MEDICARE REPLACEMENT/AD VANTAGE - HMO) [id number] Estefania R Miguel Ángel [id number] Estefania R [place] 01/07/2024 2 [employer] [place] AFTER 2020 (MEDICAID REPLACEMENT - HMO) [id number] Estefania R Miguel Ángel [id number] Estefania R [place] 02/06/2024 1 [facility] (MEDICARE REPLACEMENT/AD VANTAGE - HMO) [id number] Estefania R Miguel Ángel [id number] Estefania R [place] 02/06/2024 2 [employer] [place] 2020 ([place]ICAID REPLACEMENT - HMO) [id number] Estefania R [place] [id number] Estefania R Miguel Ángel 02/12/2024 1 [facility] (MEDICARE REPLACEMENT/AD VANTAGE - HMO) [id number] Estefania R Miguel Ángel [id number] Estefania R [place] 02/12/2024 2 [employer] [place] 2020 (MEDICAID REPLACEMENT - HMO) [id number] Estefania R [place] [id number] Estefania R [place] 03/11/2024 1 [facility] (MEDICARE REPLACEMENT/AD VANTAGE - HMO) [id number] Estefania R [place] [id number] Estefania R Miguel Ángel 03/11/2024 2 [employer] [place] (MEDICAID REPLACEMENT - HMO) [id number] Estefania R Miguel Áng[place] [id number] Estefania R [place] 03/18/2024 1 [facility] (MEDICARE REPLACEMENT/AD VANTAGE - HMO) [id number] Estefania R [place] [id number] Estefania R [place] 03/18/2024 2 [place] WHEN [place]ARE OR MEDICARE REPLACEMENT PRIMARY) Estefania R [place] [id number] Estefania R [place] Notes Date Note Type Note Provider Name and Address Organization Details Recorded Time 01/07/2024 text/html left ear cockroach. sertraline not helping . trigger finger right hand , would like to get another shot in it . WALTER Botello [address] [facility] [address], [place], [address], [facility] 02/01/2024 10:11:14 02/06/2024 text/html The patient is a 73-year-old female who presents with a right 4th trigger finger. I treated her for this back in June of this year. I gave her shot of cortisone it was doing okay until recently than last couple of months it has flared up once again. It has gotten to the point where it stays locked in flexion. She has to use her other hand to straighten the finger out. She states she can not do anything in terms of gripping or grasping because her flexor tendon sheath is so painful and tender, she wakes up in the middle the night and her fingers locked in flexion and it is very difficult to snap it back into extension. She has tried ice and anti-inflammatorie s without significant relief. She comes in today requesting evaluation treatment of a repeat right 4th trigger finger. Her past medical history is otherwise unchanged. WALTER Rivas [address], [place], [address], [employer] [facility] 02/06/2024 11:39:15 02/12/2024 text/html Patient returns with a new problem today. She is complaining of right shoulder pain for about 2 months. She states she tripped and fell onto her outstretched right arm had immediate pain since that time she has noted weakness as well. She is 73 years of age states that she has a hard time going about her daily activities she is in do anything to regular wrist but notes that she has a hard time reaching up overhead or behind her back she has aching pain that radiates into the upper arm recently she noticed that she was having some bruising along the anterior biceps also. She did not have any trauma or injury here. She has tried meloxicam rest and ice without significant relief. She does report weakness with trying to do anything heavy repetitive she comes in today for initial evaluation treatment. States the pain is about a 7 on a scale 1-10. WALTER Rivas [address], [place], [address], [employer] [facility] 02/12/2024 11:36:08 03/11/2024 text/html Patient returns for recheck of her right shoulder. She has what appears to be a large rotator cuff tendon tear I think this occurred about 3 months ago when she fell. She initially declined an MRI stating that she really does not want to go through surgery. She wants to try conservative measures. I offered her formal therapy she declined she states it is difficult for her to get a ride back and forth even to come to these appointments. We talked about home exercises she tried to keep it moving she was given a home exercise sheets but states that she is not sure if she still has those. Month ago I gave her a shot of cortisone into the right shoulder subacromial space states this helped a little bit but not getting the relief she is looking for. She has weakness has a hard time lifting up dishes into the cabinet or using her coffee pot she has to use the opposite hand for this. Prior to the fall she was not having this kind of weakness or discomfort. She comes in today for recheck to talk about further treatment options from here. She states her pain is about a 7 on a scale 1-10 if she overdoes it. WALTER Rivas [address], [place], [address], [employer] 03/11/2024 10:03:36 03/18/2024 text/html 2 shots in right palm . right shoulder biceps torn . WALTER Botello [address], [place], [address], [employer] 03/28/2024 17:04:04 OBGyn Episode No OBEpisode recorded.
--- OUTSIDE RECORDS SUMMARY | 2024-06-11 14:59 | XMS_ITS | Clinical Summary ---
Author Organization [facility] Address [address] [address] Care Team Providers Care Patent Solicitor Name Role Phone Unavailable Primary Care Provider Unavailabl e Source Comments [facility] [employer],non-owned Affiliates and Associated Physician Practices is amultiple site organization consisting of ambulatory clinics and hospital sitesin [place], [place], [place] and [place]. This disclosure is being madepursuant to the Care Everywhere program and may not contain all information available regarding this patient. Last updated 17.[facility] [employer] Social History Tobacco Use Types Packs/Day Years Used Date Smoking Tobacco: Never Assessed Sex and Gender Information Value Date Recorded Sex Assigned at Not on file Gender Identity Not on file Sexual Orientation Not on file Plan of Treatment Health Maintenance Due Date Last Done Comments BONE DENSITY TESTING 1950 COLOGUARD (AGES 45-75) - COL ON CA SCREENING 1950 COLON MONITORING 1950 COLONOSCOPY - COLON CA SCREENING 1950 CT COLONOGRAPHY - COLON CA SCREENING 1950 Colorectal Cancer Screening 1950 FIT - COLON CA SCREENING 1950 FLEX SIG - COLON CA SCREENING 1950 LIPID TESTING 1950 MAMMOGRAM 1950 HEPATITIS C SCREENING 10/21/1968 DTAP/TDAP/TD VACCINES (1 - Tdap) 1969 PNEUMOCOCCAL VACCINE 50+ (1 of 1 - PCV) 2000 ZOSTER VACCINE (1 of 2) 2000 COVID-19 VACCINE ( - 2023-2 5 season) 2023 INFLUENZA VACCINE (#1) 2023 DEPRESSION SCREENING 03/24/2024 Respiratory Syncytial Virus (RSV) Vaccine Pt: or over 60 yrs (1 - 1-dose 75+ series) 2025 HEPATITIS B VACCINE Aged Out No longe r eligible based on patient's age to complete this topic HIB VACCINE Aged Out No longer eligi ble based on patient's age to complete this topic HPV VACCINE Aged Out No longer eligi ble based on patient's age to complete this topic MENINGOCOCCAL (Group B) VACC INE SHARED DECISION-MAKING Aged Out No longer eligibl e based on patient's age to complete this topic MENINGOCOCCAL GROUPS A/C/Y/W VACCINE Aged Out No longer eligible b ased on patient's age to complete this topic
--- OUTSIDE RECORDS SUMMARY | 2024-06-11 15:02 | XMS_ITS | CONTINUITY OF CARE DOCUMENT ---
Author Name tashi akins Address Unknown Organization [facility] Address [address] [place] [address] Phone [phone] Care Team Providers Care Steel Die Printer Name Role Phone Pablo ROLDAN, Gregorio Unavailable GAY RODRIGUEZ MD Unavailable GAY RODRIGUEZ MD Unavailable [phone] PROBLEMS Condition Status Date Provider Notes HTN essential active Gregorio Shah MD HYPERLIPIDEMIA active Ange Ti CHEST PAIN-12/30 NUC NEG 6/0 6 NUC EF 47 6/4 NUC NEG completed - Gregorio Shah MD C O P D ON PRN active Gregorio Shah MD SLEEP APNEA ON CPAP active Gregorio Shah MD CHEST PAIN-12/29 CATH LAD mu [place] ,echo /stress 10/04 no ischemia active Gregorio Shah MD DM - type 2 active Willa Montalvo NP ARTHRITIS active Gregorio Shah MD Orthostatic hypotension active Gregorio Shah MD ENCOUNTERS Date Type Provider Location Encounter Diag nosis - In-person encounter Office Visit Gregorio Shah MD [facility] Orthostatic hypotension - In-person encounter Office Visit [facility] [facility] - In-person encounter Office Visit Gregorio Shah MD [facility] ARTHRITIS - In-person encounter Office Visit Gregorio Shah MD [facility] - In-person encounter Office Visit Gregorio Shah MD [facility] DM - type 2 - In-person encounter Office Visit Gregorio Shah MD [facility] - In-person encounter Office Visit Gregorio Shah MD [facility] CHEST PAIN-12/29 CATH LAD muscle bridge ,echo /stress 10/04 no ischemia - In-person encounter Office Visit Gregorio Shah MD [facility] CHEST PAIN-12/29 CATH LAD muscle bridge ,echo /stress 10/04 no ischemia - In-person encounter Office Visit Gregorio Shah MD [facility] - In-person encounter Office Visit Gregorio Shah MD [facility] - In-person encounter Office Visit Gregorio Shah MD [facility] - In-person encounter Office Visit Gregorio Shah MD [facility] - In-person encounter Office Visit Gregorio Shah MD [facility] - In-person encounter Office Visit Gregorio Shah MD [facility] - In-person encounter Office Visit Gregorio Shah MD [facility] CHEST PAIN-12/30 NUC NEG 08/27 NUC EF 47 6/4 NUC NEGC O P D ON PRNSLEEP APNEA ON CPAP - In-person encounter Office Visit Gregorio Shah MD [facility] - In-person encounter Office Visit Gregorio Shah MD [facility] VITAL SIGNS Date Observation Value Provider [...] lder Body Mass Index (Ratio) 42.17 [facility]2 [facility], [facility] 89 mm[Hg] Me ina [...] pressure, diastolic, left arm 100 m m[Hg] [facility], [facility], left arm 160 mm [Hg] [facility] blood pressure, diastolic, right arm 94 m m[Hg] [facility] blood pressure, systolic, right arm 148 m m[Hg] [facility] blood pressure, diastolic 94 mm[Hg] Garima seph [place] blood pressure, systolic 148 mm[Hg] Ruben eph [place] pulse rate 88 /min [facility] oxygen saturation, oximetry 97 % [facility] respiratory rate E&M 16 /min [facility] weight E&M 227 [lb_av] [facility] blood pressure, diastolic 87 mm[Hg] Danie Neff blood pressure, systolic 111 mm[Hg] Jenkins pulse rate 62 /min Siobhan Neff oxygen saturation, oximetry 95 % Siobhan Neff respiratory rate E&M 16 /min Siobhan Parson hussein weight E&M 236 [lb_av] Siobhan Neff ALLERGIES No Known Drug Allergies RESULTS Date Observation Value Provider Reference Range Interpretation Location 2 platelet count 263 10*3/mm3 [facility] 2 hematocrit, blood 39.6 % [facility] 2 international normalized ratio (INR) 0.9 [facility] 2 blood glucose, random 162 mg/dL [facility] 2 creatinine, serum 0.70 mg/dL [facility] 2 urea nitrogen, blood 17 mg/dL [facility] 2 potassium, serum 4.4 mmol/L [facility] 2 sodium, serum 139 mmol/L [facility] HISTORY OF MEDICATION USE Medication Status Instructions [...] smoker Symone melo cigarette use yes Symone [facility] seatbelt usage 100 % [facility] exercise type walking [facility] physical exercise, f requency, days per week [...] Former smoker Symone melo cigarette use yes [facility] seatbelt usage 100 % [facility] exercise type walking [facility] physical exercise, f requency, days per week [...] a smoker 10 years or m ore [facility] smoking history, tot al pack/year 40 [...] sangeethaon passive cigarette sm lio exposure no eJimy Fuentes smoking, year quit 2003 Jeimy Fuentes [...] Nevin madison smoking status Former smoker Nevin penaer physical exercise, f requency, days per week no Loly Cb[facility] alcohol use, average drinks per day none [...] or m ore [employer] smoking status Quit [facility] MENTAL STATUS Date Observation Value [...] Payer name Policy type / Coverage type [place] [employer] party ID [employer] O HMO [id number] ADVANCE DIRECTIVES Name Date DISCUSSED - NO [...] her for ECP. (01/05/2008) Orders: Heidi KG ([id number]) Gregorio Shah MD uncontrolled hyperte nsion: T [...] Functions Reviewed: O 2 sat: 96 (02/05/2010) rGegorio Shah MD Yearly FU: H er updated medication list for this problem includes: Aspirin 325 Mg Tabs (Aspirin) ..... Take once daily Orders: E KG ([id number]) BP today: 131/76 Prior BP: 148/94 (12/30/2008) [...] MD complete d FVC / MVV - 17764 Gregorio Shah MD co mpleted FRC - 33060 Gregorio Shah MD complete d SpO2 w/o 6min walk/titration Gregorio Shah MD completed DLCO - 35026 Gregorio Shah MD complet ed EKG Gregorio Shah MD completed SNOMED-CT: 144041672 [id number] Current Medications Documented Gregorio Shah MD completed SNOMED-CT: 42121837 Physical Exam, Performed: Pulse Exam of Foot Gregorio Shah MD completed EKG Gregorio Shah MD completed SNOMED-CT: 337394910 428025 Current Medications Documented Gregorio Shah MD completed SNOMED-CT: 380411671 613275 Current Medications Documented Gregorio Shah MD completed EKG Gregorio Shah MD completed SNOMED-CT: 071388320 721217 Current Medications Documented Gregorio Shah MD completed DLCO - 95447 Mitchell Ferrara completed FRC - 67110 Mitchell Ferrara completed FVC - 85043 Mitchell Ferrara completed ePrescribe - Check t his box if eRx is used Gregorio Shah MD completed EKG Gregorio Shah MD completed EKG Gregorio Shah MD completed EKG Gregorio Shah MD completed
--- NOTE | 2024-06-11 15:05 | ED_ITS ---
HPI - Dental/Oral General Chief complaint: Dental/Oral Stated complaint: sore jaw Time Seen by Provider: 06/11/24 15:05 Source: patient Mode of arrival: ambulatory Limitations: no limitations History of Present Illness HPI Narrative: 73 yo F presents with c/o dental pain, swelling since yesterday. Broke lower tooth 2 days ago. Aware that she has multiple decayed teeth. Afebrile Does not have a denitst. All systems reviewed and negative except as noted above. Related Data Home Medications ?Medication ?Instructions ?Recorded ?Confirmed ?Last Taken ?Type amlodipine 5 mg tablet 5 mg PO HS 01/30/19 01/06/24 01/09/21 History atorvastatin 80 mg tablet 80 mg PO HS 01/30/19 01/06/24 01/09/21 History buspirone 10 mg tablet 10 mg PO BID 01/30/19 01/06/24 01/10/21 History hydrochlorothiazide 25 mg tablet 25 mg PO QAM 01/30/19 01/06/24 01/09/21 History lisinopril 40 mg tablet 40 mg PO QAM 01/30/19 01/06/24 01/09/21 History metformin 500 mg tablet 500 mg PO BID 01/30/19 01/06/24 01/10/21 History pantoprazole 40 mg tablet,delayed 40 mg PO HS 01/30/19 01/06/24 01/09/21 History release albuterol sulfate 90 mcg/actuation 2 puff inhalation QID PRN Wheezing 12/28/20 01/06/24 01/08/21 History aerosol inhaler aspirin 325 mg tablet 325 mg PO DAILY 12/28/20 01/06/24 01/06/21 History sertraline 100 mg tablet 100 mg QAM 12/28/20 01/06/24 01/10/21 History losartan 100 mg tablet 100 mg PO DAILY 01/06/24 01/06/24 Unknown History tramadol 50 mg tablet 50 mg PO Q6H PRN Pain 01/06/24 01/06/24 Unknown History Allergies Allergy/AdvReac Type Severity Reaction Status Date / Time No Known Allergies Allergy Verified 06/11/24 15:07 Review of Systems Review of Systems: CONSTITUTIONAL: Denies fever, chills, or sweats. EYES: Denies visual changes, redness, or discharge. ENT: Denies rhinorrhea, congestion, sore throat, or otalgia. Reports dental pain and swelling CARDIOVASCULAR: Denies chest pain, palpitations, or edema. RESPIRATORY: Denies cough or dyspnea. GASTROINTESTINAL: Denies abdominal pain, nausea, vomiting, or diarrhea. GENITOURINARY: Denies dysuria or hematuria. SKIN: Denies rash or itching. MUSCULOSKELETAL: Denies back pain, joint pain, or myalgia. NEUROLOGIC: Denies headache, numbness, or weakness. PSYCHIATRIC: Denies anxiety or depression. All other systems reviewed are negative, except as documented in HPI. [facility] Past Medical History Medical History COPD (chronic obstructive pulmonary disease) Diabetes GERD (gastroesophageal reflux disease) HTN (hypertension) Hyperlipidemia LUX (obstructive sleep apnea) Family History Family History Mother Hypertension Family history of diabetes mellitus in first degree relative Father Patient's father is Acute myocardial infarction Family history of heart disease in male family member before age 55 Social History Social History Smoking status: Former smoker Second hand tobacco smoke exposure: No Smoking end date: 03/24/05 Additional smoking assessment comments: STATES 2 2/1PK/DAY/AGE 15 QUIT 2005 Alcohol intake: never Substance use: never Substance use type: does not use Living arrangements: with family Spiritual care concerns: No Comments At time of signature, agree with nursing past medical, surgical, social and family history. There is no relevant family history pertinent to the presenting complaint. Exam Narrative: GENERAL: This is a well-nourished, well-developed patient, in no apparent distress. HEAD: normocephalic, atraumatic. EYES: PERRL. Sclera clear/white. Vision is grossly intact. EARS: External ears normal NOSE: External nose normal MOUTH: multiple decayed, broken or missing teeth. gums are erythematous. tender on palpation NECK: Neck supple, non-tender without lymphadenopathy, masses or thyromegaly. CARDIOVASCULAR: Regular rate and rhythm without murmurs, gallops, or rubs. RESPIRATORY: Clear to auscultation. Breath sounds equal bilaterally. No wheezes, rales, or rhonchi. SKIN: warm, Dry, intact with no suspicious lesions or rash, good texture and turgor. NEURO: awake, alert, and oriented to person, place and time. There were no obvious focal neurologic abnormalities. EXTREMITIES: No joint tenderness, effusion, or edema noted. Course Course Level of Care: Express Care Visit Vital Signs Vital signs: Vital Signs Temperature 36.6 C 06/11/24 14:56 Pulse Rate 91 06/11/24 14:56 Respiratory Rate 18 06/11/24 14:56 Blood Pressure 134/99 H 06/11/24 14:56 Pulse Oximetry 97 06/11/24 14:56 Oxygen Delivery Room Air 06/11/24 14:56 Temperature 36.6 C 06/11/24 14:56 Pulse Rate 91 06/11/24 14:56 Respiratory Rate 18 06/11/24 14:56 Blood Pressure 134/99 H 06/11/24 14:56 Pulse Oximetry 97 06/11/24 14:56 Oxygen Delivery Room Air 06/11/24 14:56 reviewed MDM - Dental/Oral MDM Narrative Medical decision making narrative: will treat dental infection with clindamycin. Recommend follow-up with dentist at next available appointment. Patient is alert, nontoxic. Please be advised this is a medical document. It is intended for [id number] communication. It is written in medical language and may contain unfamiliar abbreviations or verbiage. Medical documents are intended to carry relevant information, facts as evident, and the clinical opinion of the practitioner at the time of the encounter. This report may have been done utilizing a voice recognition system. Attempts have been made to correct errors. However, there may be uncorrected grammatical, spelling, and recognition errors present. The file time of this note does not necessarily represent the time of service. Discharge Plan Discharge Clinical Impression: Dental infection Patient Disposition: Home, Self-Care Condition: Stable Instructions: Antibiotic Form, Toothache (ED) Additional Instructions: take antibiotic as prescribed until gone. Follow-up with dentist at next available appointment. For any worsening of your swelling go to the ER. Patient Language: [place] Prescriptions: New clindamycin HCl 300 mg capsule 300 mg PO QID 10 Days Qty: 40 0RF No Action atorvastatin 80 mg Tablet 80 mg PO HS amlodipine 5 mg Tablet 5 mg PO HS buspirone 10 mg Tablet 10 mg PO BID metformin 500 mg Tablet 500 mg PO BID hydrochlorothiazide 25 mg Tablet 25 mg PO QAM lisinopril 40 mg Tablet 40 mg PO QAM pantoprazole 40 mg Tablet,Delayed Release (Dr/Ec) 40 mg PO HS tramadol 50 mg Tablet 50 mg PO Q6H PRN (Reason: Pain) losartan 100 mg tablet 100 mg PO DAILY aspirin 325 mg Tablet 325 mg PO DAILY sertraline 100 mg Tablet 100 mg QAM albuterol sulfate 90 mcg/actuation HFA aerosol inhaler 2 puff INHALATION QID PRN (Reason: Wheezing) hydrocodone-acetaminophen 7.5-325 mg tablet 1 tablet PO Q4H PRN (Reason: pain) Qty: 40 0RF Follow-up/Referrals: PHYSICIAN NOT ON STAFF,NONSTAFF [Primary Care Provider] - Time of Disposition: 15:12
== END 2024-06-11 15:15 | disposition home or self-care (01) ==
PROVIDERS: Emergency Provider Nurse Practitioner Family
DX: K04.7 Periapical abscess without sinus (principal); Z87.891 Personal history of nicotine dependence; I10 Essential (primary) hypertension; E11.9 Type 2 diabetes mellitus without complications; Z79.84 Long term (current) use of oral hypoglycemic drugs; E78.5 Hyperlipidemia, unspecified; J44.9 Chronic obstructive pulmonary disease, unspecified; K21.9 Gastro-esophageal reflux disease without esophagitis; Z79.82 Long term (current) use of aspirin
CPT/HCPCS: 99213; G0463